=== PATIENT | male | born 1965 | race Two or more races ===

== ENCOUNTER 2018-08-13 09:24 | Emergency (ER) | payer MEDICAID, OTHER ==
[~2018-08-13] VITALS: Ht 170.2 cm; Wt 97.5 kg
[2018-08-13 09:40] VITALS: BP 153/100
== END 2018-08-13 10:55 | disposition home or self-care (01) ==
LOC: ER 09:24
DX: H10.33 Unspecified acute conjunctivitis, bilateral (principal)

== ENCOUNTER 2022-09-29 19:56 | Inpatient (IN) | payer MEDICAID ==
[~2022-09-29] VITALS: Ht 190.5 cm; Wt 117.5 kg
[2022-09-29 20:38] LABS: INR 1.02 (0.9-1.15); Partial Thromboplastin Time 25.4 sec (24.6-33.4)
[2022-09-29 20:41] LABS: Albumin 3.7 g/dL (3.4-5.0); BUN/Creatinine Ratio 9.6; Calcium 8.6 mg/dL (8.5-10.1); Magnesium 2.2 mg/dL (1.6-2.6); Potassium 4.2 mmol/L (3.5-5.1)
[2022-09-29 20:44] LABS: Bilirubin, Total 0.5 mg/dL (0.2-1.0)
[2022-09-29 20:49] LABS: Basophils % (auto) 0.7 % (0.0-2.0); Eosinophils % (auto) 1.7 % (0.0-7.0); Lymphocytes % (auto) 43.7 % (10.0-50.0); Monocytes % (auto) 10.3 % (0.0-12.0); Neutrophils % (auto) 43.6 % (37.0-80.0); White Blood Cell 6.8 10^3/uL (4.4-10.8)
[2022-09-29 20:50] LABS: Basophils # (auto) 0 10 ^3/uL (0-0.2); Eosinophils # (auto) 0.1 10 ^3/uL (0-0.8); Hematocrit 43.4 % (41.0-53.0); Hemoglobin 15.6 g/dL (13.5-17.5); Mean Corpuscular Hemoglobin 30.8 pg (28.0-32.0); Mean Corpuscular Volume 85.4 fL (80.0-100.0); Monocytes # (auto) 0.7 10 ^3/uL (0-1.3); Red Blood Cells 5.08 10^6/uL (4.5-5.90); Red Cell Distribution Width 12.7 % (11.8-14.3)
[2022-09-30] MEDS ORDERED: ONDANSETRON HCL 4 MG/2 ML VIAL IV PRN (04:00)
[2022-09-30] MEDS ORDERED: NITROGLYCERIN 0.4 MG SL TAB SL PRN (04:00)
[2022-09-30] MEDS ORDERED: TEMAZEPAM 15 MG CAP PO PRN (04:00)
[2022-09-30] MEDS ORDERED: MORPHINE SULFATE INJ 2 MG/ml SYRG IV PRN (04:00)
[2022-09-30] MEDS ORDERED: DEXTROSE (50%) 50ML SYRG IV PRN (04:00)
[2022-09-30] MEDS: InsuLIN REG 1unit/0.01ml Soln (100units/ml) SC SCH ×3 (06:59→17:46)
[2022-09-30] MEDS: ACCU-CHEK COMFORT CURVE STRIP VI SCH ×3 (07:00→17:45)
[2022-09-30] MEDS: PANTOPRAZOLE 40 MG TAB PO SCH (09:45)
[2022-09-30] MEDS: LISINOPRIL 20 MG TAB PO SCH (09:45)
[2022-09-30] MEDS: ENOXAPARIN SOD 40 MG/0.4 ML SYRINGE SC SCH (09:46)
[2022-09-30] MEDS ORDERED: ASPirin 81 mg TAB PO SCH (10:00)
[2022-09-30] MEDS ORDERED: ERGOCALCIFEROL 50,000 UNIT(1.25MG) CAP PO SCH (14:30)
[2022-09-30 15:07] LABS: Cholesterol 156 mg/dL (< 200)
[2022-09-30 15:10] LABS: HDL Cholesterol 30 mg/dL (40-59); LDL Cholesterol 108 mg/dL (< 100); Triglycerides 269 mg/dL (< 150)
[2022-09-30] MEDS ORDERED: ATORVASTATIN 20 MG TAB PO SCH ×2 (22:00)
[2022-10-01] MEDS: ACCU-CHEK COMFORT CURVE STRIP VI SCH ×3 (01:21→12:15)
[2022-10-01] MEDS: InsuLIN REG 1unit/0.01ml Soln (100units/ml) SC SCH ×3 (01:26→12:16)
[2022-10-01 05:33] LABS: Basophils # (auto) 0 10 ^3/uL (0-0.2); Basophils % (auto) 0.6 % (0.0-2.0); Eosinophils # (auto) 0.1 10 ^3/uL (0-0.8); Eosinophils % (auto) 1.8 % (0.0-7.0); Hematocrit 44.6 % (41.0-53.0); Hemoglobin 15.9 g/dL (13.5-17.5); Lymphocytes # (auto) 2.5 10 ^3/uL (0.4-5.4); Lymphocytes % (auto) 35.8 % (10.0-50.0); Mean Corpuscular Hemoglobin 30.2 pg (28.0-32.0); Mean Corpuscular Hgb Conc. 35.6 g/dL (32.0-36.0); Mean Corpuscular Volume 84.9 fL (80.0-100.0); Monocytes # (auto) 0.6 10 ^3/uL (0-1.3); Monocytes % (auto) 9.1 % (0.0-12.0); Neutrophils # (auto) 3.6 10 ^3/uL (1.6-8.6); Neutrophils % (auto) 52.7 % (37.0-80.0); Nucleated Red Blood Cells % 0.5 %; Red Blood Cells 5.25 10^6/uL (4.5-5.90); Red Cell Distribution Width 13.2 % (11.8-14.3); White Blood Cell 6.9 10^3/uL (4.4-10.8)
[2022-10-01 05:55] LABS: BUN/Creatinine Ratio 15.6; Calcium 8.7 mg/dL (8.5-10.1)
[2022-10-01] MEDS ORDERED: ADENOSINE 102 MG in GIVE UN-DILUTED 0 ML IV STA (08:20)
[2022-10-01] MEDS ORDERED: ASPirin 81 mg TAB PO SCH (10:00)
[2022-10-01] MEDS: PANTOPRAZOLE 40 MG TAB PO SCH (10:09)
[2022-10-01] MEDS: ENOXAPARIN SOD 40 MG/0.4 ML SYRINGE SC SCH (10:10)
[2022-10-01] MEDS: LISINOPRIL 20 MG TAB PO SCH (10:10)
[2022-10-01] MEDS ORDERED: ERGO1CAP23 PO (14:25)
[2022-10-01] MEDS ORDERED: ASPI-325 PO (14:25)
[2022-10-01] MEDS ORDERED: ATO40T PO (14:25)
[2022-10-01] MEDS ORDERED: LISI20TA28 PO (14:34)
[2022-10-01] MEDS ORDERED: SITA100T7 PO (15:10)
[2022-10-01 15:29] VITALS: BP 132/85
== END 2022-10-01 17:10 | disposition home or self-care (01) | DRG 198 ==
LOC: ER 19:59 → TELE 09-30 03:57 → TELE-CENTR 10-01 13:46
PROVIDERS: ADMIT Nurse Practitioner; ATTEND Internal Medicine
DX: R07.9 Chest pain, unspecified (principal); I25.10 Atherosclerotic heart disease of native coronary artery without angina pectoris; E11.9 Type 2 diabetes mellitus without complications; E55.9 Vitamin D deficiency, unspecified; E66.9 Obesity, unspecified; I10 Essential (primary) hypertension; Z20.822 Contact with and (suspected) exposure to COVID-19; M10.9 Gout, unspecified; Z71.3 Dietary counseling and surveillance; I69.30 Unspecified sequelae of cerebral infarction; Z68.32 Body mass index [BMI] 32.0-32.9, adult
CPT/HCPCS: 36415; 70450; 71045; 78452; 80048; 80053; 80061; 82306; 82962; 83036; 83735; 83880; 84443; 84484; 85025; 85610; 85730; 87426; 87804; 93005; 93017; 93306; G0378; J0153; J1815

== ENCOUNTER 2022-10-22 18:48 | Inpatient (IN) | payer MEDICAID ==
[~2022-10-22] VITALS: Ht 182.9 cm; Wt 117.9 kg
[~2022-10-22 18:48] MED LIST: ASPI-325 PO; ATO40T PO; ERGO1CAP23 PO; LISI20TA28 PO; SITA100T7 PO
[2022-10-22 20:39] LABS: Basophils # (auto) 0.1 10 ^3/uL (0-0.2); Basophils % (auto) 0.6 % (0.0-2.0); Eosinophils # (auto) 0.2 10 ^3/uL (0-0.8); Eosinophils % (auto) 1.5 % (0.0-7.0); Hematocrit 43.2 % (41.0-53.0); Hemoglobin 15.6 g/dL (13.5-17.5); Lymphocytes # (auto) 1.5 10 ^3/uL (0.4-5.4); Lymphocytes % (auto) 11.6 % (10.0-50.0); Mean Corpuscular Hemoglobin 30.1 pg (28.0-32.0); Mean Corpuscular Hgb Conc. 36.1 g/dL (32.0-36.0); Mean Corpuscular Volume 83.4 fL (80.0-100.0); Monocytes # (auto) 0.9 10 ^3/uL (0-1.3); Monocytes % (auto) 7.2 % (0.0-12.0); Neutrophils # (auto) 10.2 10 ^3/uL (1.6-8.6); Neutrophils % (auto) 79.1 % (37.0-80.0); Red Blood Cells 5.18 10^6/uL (4.5-5.90); Red Cell Distribution Width 12.7 % (11.8-14.3); White Blood Cell 12.9 10^3/uL (4.4-10.8)
[2022-10-22 20:46] LABS: Albumin 3.7 g/dL (3.4-5.0); BUN/Creatinine Ratio 14.9 (10.0-20.0); Magnesium 2.3 mg/dL (1.6-2.6); Potassium 3.9 mmol/L (3.5-5.1)
[2022-10-22 20:49] LABS: Bilirubin, Total 0.8 mg/dL (0.2-1.0); Total Protein 7.1 g/dL (6.4-8.2)
[2022-10-22 20:53] LABS: INR 1.03 (0.9-1.15); Partial Thromboplastin Time 26.3 sec (24.6-33.4)
[2022-10-22] MEDS ORDERED: NITROGLYCERIN 0.4MG/HR TOPICAL PATCH TD ONE (21:45)
[2022-10-22] MEDS ORDERED: ASPirin 325 MG TAB PO ONE (21:45)
[2022-10-22 21:54] LABS: Urine Bacteria NONE SEEN /hpf (None Seen); Urine Blood Negative /uL (Negative); Urine Mucus FEW (None Seen); Urine Specific Gravity 1.016 (1.001-1.035); Urine WBC 2 /hpf (0 - 3)
[2022-10-22] MEDS ORDERED: IOHEXOL 350 MG/ML 100ML IJ ONE (23:36)
[2022-10-22] MEDS ORDERED: DEXTROSE (50%) 50ML SYRG IV PRN (23:45)
[2022-10-22] MEDS ORDERED: PANTOPRAZOLE 40 MG/10 ML VIAL INJ IV ONE (23:45)
[2022-10-22] MEDS ORDERED: MORPHINE SULFATE INJ 2 MG/ml SYRG IV PRN ×2 (23:45)
[2022-10-22] MEDS ORDERED: NITROGLYCERIN 0.4 MG SL TAB SL PRN (23:45)
[2022-10-22] MEDS ORDERED: ENOXAPARIN SOD 100 MG/1 ML SYRINGE SC ONE (23:45)
[2022-10-23 05:53] LABS: Basophils # (auto) 0 10 ^3/uL (0-0.2); Basophils % (auto) 0.3 % (0.0-2.0); Eosinophils # (auto) 0.2 10 ^3/uL (0-0.8); Eosinophils % (auto) 1.3 % (0.0-7.0); Hematocrit 40.8 % (41.0-53.0); Hemoglobin 14.2 g/dL (13.5-17.5); Lymphocytes # (auto) 1.3 10 ^3/uL (0.4-5.4); Lymphocytes % (auto) 9.4 % (10.0-50.0); Mean Corpuscular Hemoglobin 29.9 pg (28.0-32.0); Mean Corpuscular Hgb Conc. 34.8 g/dL (32.0-36.0); Mean Corpuscular Volume 85.9 fL (80.0-100.0); Monocytes # (auto) 1.2 10 ^3/uL (0-1.3); Monocytes % (auto) 8.5 % (0.0-12.0); Neutrophils # (auto) 11.4 10 ^3/uL (1.6-8.6); Neutrophils % (auto) 80.5 % (37.0-80.0); Nucleated Red Blood Cells % 0.1 %; Red Blood Cells 4.75 10^6/uL (4.5-5.90); Red Cell Distribution Width 13.2 % (11.8-14.3); White Blood Cell 14.1 10^3/uL (4.4-10.8)
[2022-10-23 06:06] LABS: Potassium 3.8 mmol/L (3.5-5.1)
[2022-10-23 06:07] LABS: Barbiturate Scree,Urine NEGATIVE (NEGATIVE); Cannabinoid Screen, Urine NEGATIVE (NEGATIVE)
[2022-10-23 06:10] LABS: Alcohol, Urine < 3.0 mg/dL (0-10); Amphetamine Screen, Urine NEGATIVE (NEGATIVE); Benzodiazephine Screen, Urine NEGATIVE (NEGATIVE); Cocaine Screen, Urine NEGATIVE (NEGATIVE); Opiate Scree,Urine NEGATIVE (NEGATIVE); Phencyclidine Screen, Urine NEGATIVE (NEGATIVE)
[2022-10-23 06:18] LABS: Albumin 3.5 g/dL (3.4-5.0); BUN/Creatinine Ratio 12.6 (10.0-20.0); Bilirubin, Total 1.2 mg/dL (0.2-1.0); Calcium 8.7 mg/dL (8.5-10.1); Total Protein 7.1 g/dL (6.4-8.2)
[2022-10-23] MEDS: ACCU-CHEK COMFORT CURVE STRIP VI SCH ×4 (08:48→22:21)
[2022-10-23] MEDS: InsuLIN REG 1unit/0.01ml Soln (100units/ml) SC SCH ×4 (08:49→22:21)
[2022-10-23] MEDS ORDERED: PANTOPRAZOLE 40 MG/10 ML VIAL INJ IV SCH (10:00)
[2022-10-23] MEDS: ASPirin-EC 81 mg tab PO SCH (10:01)
[2022-10-23] MEDS: LISINOPRIL 20 MG TAB PO SCH (10:02)
[2022-10-23] MEDS: ENOXAPARIN SOD 40 MG/0.4 ML SYRINGE SC SCH (10:02)
[2022-10-23] MEDS: ATORVASTATIN 20 MG TAB PO SCH (18:23)
[2022-10-23] MEDS: ACETAMINOPHEN 325 MG TAB PO PRN (20:36)
[2022-10-24 04:40] VITALS: BP 127/70
[2022-10-24 05:00] VITALS: BP 127/70
[2022-10-24] MEDS: ACETAMINOPHEN 325 MG TAB PO PRN (05:28)
[2022-10-24] MEDS: InsuLIN REG 1unit/0.01ml Soln (100units/ml) SC SCH ×4 (06:21→22:43)
[2022-10-24] MEDS: ACCU-CHEK COMFORT CURVE STRIP VI SCH ×4 (06:38→22:39)
[2022-10-24 07:30] VITALS: BP 131/50
[2022-10-24 09:00] VITALS: BP 115/70
[2022-10-24] MEDS: ASPirin-EC 81 mg tab PO SCH (09:48)
[2022-10-24] MEDS: LISINOPRIL 20 MG TAB PO SCH (09:49)
[2022-10-24] MEDS: ENOXAPARIN SOD 40 MG/0.4 ML SYRINGE SC SCH (09:49)
[2022-10-24 13:00] VITALS: BP 125/68
[2022-10-24 17:00] VITALS: BP 118/71
[2022-10-24] MEDS ORDERED: ALL300T PO (17:26)
[2022-10-24] MEDS: ATORVASTATIN 20 MG TAB PO SCH (18:09)
[2022-10-24] MEDS: HYDROcodone-ACET 5/325MG TAB PO PRN (21:10)
[2022-10-25 05:00] VITALS: BP 118/71
[2022-10-25] MEDS: ACCU-CHEK COMFORT CURVE STRIP VI SCH ×4 (06:25→21:16)
[2022-10-25] MEDS: InsuLIN REG 1unit/0.01ml Soln (100units/ml) SC SCH ×4 (06:36→21:18)
[2022-10-25 07:30] VITALS: BP 115/70
[2022-10-25 09:00] VITALS: BP 125/83
[2022-10-25] MEDS: ASPirin-EC 81 mg tab PO SCH (12:17)
[2022-10-25] MEDS: ENOXAPARIN SOD 40 MG/0.4 ML SYRINGE SC SCH (12:26)
[2022-10-25] MEDS: LISINOPRIL 20 MG TAB PO SCH (12:26)
[2022-10-25 13:00] VITALS: BP 112/64
[2022-10-25 17:00] VITALS: BP 120/74
[2022-10-25] MEDS: ATORVASTATIN 20 MG TAB PO SCH (17:26)
[2022-10-25 22:00] VITALS: BP 134/69
[2022-10-26 05:00] VITALS: BP 120/76
[2022-10-26] MEDS: ACCU-CHEK COMFORT CURVE STRIP VI SCH ×4 (06:35→21:02)
[2022-10-26] MEDS: InsuLIN REG 1unit/0.01ml Soln (100units/ml) SC SCH ×4 (06:38→21:07)
[2022-10-26 09:00] VITALS: BP 117/72
[2022-10-26] MEDS: ASPirin-EC 81 mg tab PO SCH (10:12)
[2022-10-26] MEDS: LISINOPRIL 20 MG TAB PO SCH (10:13)
[2022-10-26] MEDS: ENOXAPARIN SOD 40 MG/0.4 ML SYRINGE SC SCH (10:13)
[2022-10-26 13:00] VITALS: BP 114/66
[2022-10-26 17:00] VITALS: BP 128/72
[2022-10-26] MEDS: ATORVASTATIN 20 MG TAB PO SCH (18:29)
[2022-10-26 22:00] VITALS: BP 129/73
[2022-10-27 05:00] VITALS: BP 100/64
[2022-10-27] MEDS: ACCU-CHEK COMFORT CURVE STRIP VI SCH ×2 (06:00→11:30)
[2022-10-27] MEDS: HYDROcodone-ACET 5/325MG TAB PO PRN (06:05)
[2022-10-27] MEDS: InsuLIN REG 1unit/0.01ml Soln (100units/ml) SC SCH ×2 (06:05→12:56)
[2022-10-27 09:00] VITALS: BP 118/78
[2022-10-27] MEDS: ASPirin-EC 81 mg tab PO SCH (09:22)
[2022-10-27] MEDS: ENOXAPARIN SOD 40 MG/0.4 ML SYRINGE SC SCH (09:23)
[2022-10-27] MEDS: LISINOPRIL 20 MG TAB PO SCH (09:23)
[2022-10-27 12:20] VITALS: BP 128/72
== END 2022-10-27 15:47 | disposition home or self-care (01) | DRG 198 ==
LOC: ER 18:48 → EDBD 18:48 → TELE 23:34 → TELE-CENTR 10-23 23:31
PROVIDERS: ADMIT Registered Nurse; ATTEND Internal Medicine
DX: R07.89 Other chest pain (principal); I20.0 Unstable angina; E11.9 Type 2 diabetes mellitus without complications; E66.01 Morbid (severe) obesity due to excess calories; E78.5 Hyperlipidemia, unspecified; I10 Essential (primary) hypertension; Z20.822 Contact with and (suspected) exposure to COVID-19; Z86.73 Personal history of transient ischemic attack (TIA), and cerebral infarction without residual deficits; Z68.35 Body mass index [BMI] 35.0-35.9, adult; Z79.899 Other long term (current) drug therapy
CPT/HCPCS: 36415; 71045; 71275; 80053; 80307; 81001; 82962; 83735; 83880; 84484; 85025; 85610; 85730; 87081; 87426; 93005; C9113; G0378; J1815

== ENCOUNTER 2023-07-16 12:22 | Inpatient (IN) | payer MEDICAID ==
[~2023-07-16] VITALS: Ht 195.6 cm; Wt 123.5 kg
[~2023-07-16 12:22] MED LIST changes: +ALL300T PO; +CEPH500C PO; +IBUP1TAB5 PO; -LISI20TA28 PO; +LISI20TA56 PO; +MUPI2OIN2 EX
[2023-07-16] MEDS ORDERED: ASPirin 325 MG TAB PO ONE (12:30)
[2023-07-16] MEDS ORDERED: NITROGLYCERIN 0.4 MG SL TAB SL ONE (12:30)
[2023-07-16 13:25] LABS: Basophils # (auto) 0.1 10 ^3/uL (0-0.2); Basophils % (auto) 0.7 % (0.0-2.0); Eosinophils # (auto) 0.1 10 ^3/uL (0-0.8); Hematocrit 48.2 % (41.0-53.0); Hemoglobin 16.4 g/dL (13.5-17.5); Lymphocytes # (auto) 2.2 10 ^3/uL (0.4-5.4); Lymphocytes % (auto) 28.3 % (10.0-50.0); Mean Corpuscular Hemoglobin 30.2 pg (28.0-32.0); Mean Corpuscular Hgb Conc. 34.1 g/dL (32.0-36.0); Mean Corpuscular Volume 88.7 fL (80.0-100.0); Monocytes # (auto) 0.7 10 ^3/uL (0-1.3); Monocytes % (auto) 9.7 % (0.0-12.0); Neutrophils # (auto) 4.6 10 ^3/uL (1.6-8.6); Neutrophils % (auto) 60.3 % (37.0-80.0); Nucleated Red Blood Cells % 0.3 %; Red Blood Cells 5.44 10^6/uL (4.5-5.90); Red Cell Distribution Width 13.3 % (11.8-14.3); White Blood Cell 7.6 10^3/uL (4.4-10.8)
[2023-07-16 13:30] LABS: Alanine Aminotransferase 54 U/L (7-40); Albumin 4.4 g/dL (3.2-4.8); Alkaline Phosphatase 142 U/L (46-116); Anion Gap 8 (5-15); Aspartate Aminotransferase 21 U/L (13-40); BUN/Creatinine Ratio 12.2 (10.0-20.0); Bilirubin, Total 0.5 mg/dL (0.2-1.0); Blood Urea Nitrogen 11 mg/dL (9-23); Calcium 9.2 mg/dL (8.5-10.1); Carbon Dioxide 24 mmol/L (20-30); Chloride 106 mmol/L (98-107); Glucose 139 mg/dL (74-106); Potassium 4.4 mmol/L (3.5-5.1); Sodium 138 mmol/L (136-145)
[2023-07-16 13:31] LABS: Total Protein 6.8 g/dL (5.7-8.2)
[2023-07-16] MEDS ORDERED: ACETAMINOPHEN 325 MG TAB PO PRN (15:00)
[2023-07-16] MEDS ORDERED: NITROGLYCERIN 0.4 MG SL TAB SL PRN (15:00)
[2023-07-16] MEDS ORDERED: MORPHINE SULFATE 4 MG/ML SYR/VIAL IV PRN (15:00)
[2023-07-16] MEDS ORDERED: ONDANSETRON HCL 4 MG/2 ML VIAL IV PRN (15:00)
[2023-07-16 15:32] LABS: INR 1.05 (0.9-1.15)
[2023-07-16 22:10] VITALS: PULSE 74
[2023-07-16] MEDS: ATORVASTATIN 20 MG TAB PO SCH (22:13)
[2023-07-16] MEDS ORDERED: DEXTROSE (50%) 50ML SYRG IV PRN (22:30)
[2023-07-17] VITALS (8 sets, daily range): BP systolic 99–123; BP diastolic 57–65; PULSE 55–69; RESP 16–20; TEMP 97.5–98.3; O2SAT 92–100
[2023-07-17] MEDS: InsuLIN REG 1unit/0.01ml Soln (100units/ml) SC SCH ×5 (03:21→22:00)
[2023-07-17] MEDS: ACCU-CHEK COMFORT CURVE STRIP VI SCH ×6 (03:21→22:00)
[2023-07-17 05:58] LABS: Basophils # (auto) 0 10 ^3/uL (0-0.2); Basophils % (auto) 0.4 % (0.0-2.0); Eosinophils # (auto) 0.1 10 ^3/uL (0-0.8); Eosinophils % (auto) 0.9 % (0.0-7.0); Hematocrit 46.4 % (41.0-53.0); Hemoglobin 15.7 g/dL (13.5-17.5); Lymphocytes # (auto) 2.3 10 ^3/uL (0.4-5.4); Mean Corpuscular Hemoglobin 30.4 pg (28.0-32.0); Mean Corpuscular Hgb Conc. 33.9 g/dL (32.0-36.0); Mean Corpuscular Volume 89.6 fL (80.0-100.0); Monocytes # (auto) 0.8 10 ^3/uL (0-1.3); Monocytes % (auto) 9.3 % (0.0-12.0); Neutrophils # (auto) 5.3 10 ^3/uL (1.6-8.6); Neutrophils % (auto) 62.4 % (37.0-80.0); Nucleated Red Blood Cells % 0.2 %; Red Blood Cells 5.18 10^6/uL (4.5-5.90); Red Cell Distribution Width 13.7 % (11.8-14.3); White Blood Cell 8.5 10^3/uL (4.4-10.8)
[2023-07-17 06:18] LABS: Alanine Aminotransferase 48 U/L (7-40); Alkaline Phosphatase 92 U/L (46-116); Anion Gap 11 (5-15); BUN/Creatinine Ratio 7.6 (10.0-20.0); Blood Urea Nitrogen 7 mg/dL (9-23); Calcium 9.2 mg/dL (8.5-10.1); Carbon Dioxide 20 mmol/L (20-30); Chloride 107 mmol/L (98-107); Glucose 101 mg/dL (74-106); LDL Cholesterol 57 mg/dL (< 100); Potassium 4.2 mmol/L (3.5-5.1); Sodium 138 mmol/L (136-145); Triglycerides 131 mg/dL (< 150)
[2023-07-17 06:19] LABS: Albumin 4.2 g/dL (3.2-4.8); Aspartate Aminotransferase 19 U/L (13-40); Bilirubin, Total 0.9 mg/dL (0.2-1.0); Cholesterol 97 mg/dL (< 200); HDL Cholesterol 25 mg/dL (40-59)
[2023-07-17 06:20] LABS: Total Protein 6.9 g/dL (5.7-8.2)
[2023-07-17] MEDS ORDERED: ASPirin 81 mg TAB PO SCH (10:00)
[2023-07-17] MEDS ORDERED: DEXTROSE (50%) 50ML SYRG IV PRN (10:00)
[2023-07-17] MEDS ORDERED: LISINOPRIL 20 MG TAB PO SCH (10:00)
[2023-07-17] MEDS: ASPirin-EC 81 mg tab PO SCH (10:14)
[2023-07-17] MEDS: ALLOPURINOL 300 MG TAB PO SCH (10:14)
[2023-07-17] MEDS: DOCUSATE SOD 100 MG CAP PO SCH (10:14)
[2023-07-17] MEDS: PANTOPRAZOLE 40 MG TAB PO SCH (10:15)
[2023-07-17] MEDS: ATORVASTATIN 20 MG TAB PO SCH (22:14)
[2023-07-18 05:00] VITALS: BP 100/76; PULSE 63; RESP 18; TEMP 97.6; O2SAT 95
[2023-07-18] MEDS: ACCU-CHEK COMFORT CURVE STRIP VI SCH ×6 (06:04→21:25)
[2023-07-18] MEDS: InsuLIN REG 1unit/0.01ml Soln (100units/ml) SC SCH ×4 (06:04→21:34)
[2023-07-18 08:00] VITALS: PULSE 60; PULSE 66; RESP 16; O2SAT 97
[2023-07-18] MEDS ORDERED: ACETAMINOPHEN 325 MG TAB PO PRN (09:15)
[2023-07-18] MEDS ORDERED: hydrALAZINE HCL 20 MG/ML VL IV PRN (09:15)
[2023-07-18] MEDS: PANTOPRAZOLE 40 MG TAB PO SCH (11:31)
[2023-07-18] MEDS: ALLOPURINOL 300 MG TAB PO SCH (11:31)
[2023-07-18] MEDS: DOCUSATE SOD 100 MG CAP PO SCH (11:31)
[2023-07-18] MEDS: ASPirin-EC 81 mg tab PO SCH (11:31)
[2023-07-18 13:56] VITALS: BP 122/70; PULSE 63; RESP 20; TEMP 98.1; O2SAT 95
[2023-07-18 17:22] VITALS: BP 100/49; PULSE 62; RESP 20; TEMP 97.3; O2SAT 97
[2023-07-18 20:00] VITALS: PULSE 74; RESP 17; O2SAT 96
[2023-07-18] MEDS: ATORVASTATIN 20 MG TAB PO SCH (21:33)
[2023-07-18 22:00] VITALS: BP 111/69; PULSE 72; RESP 17; TEMP 98.2; O2SAT 96
[2023-07-19 00:16] LABS: Urine Bacteria NONE SEEN /hpf (None Seen); Urine Blood Negative /uL (Negative); Urine Clarity Clear (Clear); Urine Color Yellow (Yellow); Urine Protein, UAD Negative (Negative); Urine Specific Gravity 1.025 (1.001-1.035); Urine Urobilinogen Normal (Negative); Urine WBC 1 /hpf (0 - 3); Urine pH 5.5 (5.0-8.0)
[2023-07-19 05:00] VITALS: BP 119/79; PULSE 17; RESP 17; TEMP 98.3; O2SAT 93
[2023-07-19] MEDS: ACCU-CHEK COMFORT CURVE STRIP VI SCH ×2 (06:12→11:51)
[2023-07-19] MEDS: InsuLIN REG 1unit/0.01ml Soln (100units/ml) SC SCH ×2 (06:12→11:53)
[2023-07-19 08:10] VITALS: BP 121/79; PULSE 57; PULSE 62; PULSE 64; RESP 19; TEMP 97.6; O2SAT 94
[2023-07-19 09:00] VITALS: BP 121/79; PULSE 64; RESP 19; TEMP 97.6; O2SAT 92
[2023-07-19] MEDS: ASPirin-EC 81 mg tab PO SCH (09:02)
[2023-07-19] MEDS: ALLOPURINOL 300 MG TAB PO SCH (09:02)
[2023-07-19] MEDS: PANTOPRAZOLE 40 MG TAB PO SCH (09:02)
[2023-07-19] MEDS: DOCUSATE SOD 100 MG CAP PO SCH (09:02)
[2023-07-19 13:00] VITALS: BP 107/75; PULSE 62; RESP 21; TEMP 97.4; O2SAT 98
[2023-07-19 14:19] VITALS: BP 107/75; PULSE 62; RESP 21; TEMP 97.4; O2SAT 98
[2023-07-20 09:34] LABS: Hepatitis B Surface Antigen Negative (Negative)
[2023-07-20 09:56] LABS: Hepatitis C Antibody Negative (Negative)
== END 2023-07-19 16:15 | disposition home or self-care (01) | DRG 198 ==
LOC: EDBD 12:22 → ER 12:22 → EDUNIT# 12:22 → TELE 14:51 → TELE-CENTR 07-17 03:25
PROVIDERS: ADMIT Nurse Practitioner Family; ATTEND Internal Medicine
DX: I25.10 Atherosclerotic heart disease of native coronary artery without angina pectoris (principal); E11.65 Type 2 diabetes mellitus with hyperglycemia; I10 Essential (primary) hypertension; E78.5 Hyperlipidemia, unspecified; E66.9 Obesity, unspecified; M10.9 Gout, unspecified; R74.01 Elevation of levels of liver transaminase levels; Z83.3 Family history of diabetes mellitus; Z86.73 Personal history of transient ischemic attack (TIA), and cerebral infarction without residual deficits; Z95.5 Presence of coronary angioplasty implant and graft; Z68.32 Body mass index [BMI] 32.0-32.9, adult
CPT/HCPCS: 36415; 71045; 80053; 80061; 81001; 82962; 83036; 83605; 83735; 83880; 84100; 84484; 85025; 85379; 85610; 86803; 87081; 87340; 93005; 93306; G0378; J1815; J2405

== ENCOUNTER 2023-07-28 12:05 | Inpatient (IN) | payer MEDICAID ==
[~2023-07-28] VITALS: Ht 175.3 cm; Wt 124.3 kg
[2023-07-28 13:38] LABS: Basophils # (auto) 0 10 ^3/uL (0-0.2); Basophils % (auto) 0.5 % (0.0-2.0); Eosinophils # (auto) 0.1 10 ^3/uL (0-0.8); Eosinophils % (auto) 1.7 % (0.0-7.0); Hemoglobin 16.6 g/dL (13.5-17.5); Lymphocytes # (auto) 1.8 10 ^3/uL (0.4-5.4); Lymphocytes % (auto) 24.2 % (10.0-50.0); Mean Corpuscular Hgb Conc. 33.9 g/dL (32.0-36.0); Mean Corpuscular Volume 88.5 fL (80.0-100.0); Monocytes # (auto) 0.7 10 ^3/uL (0-1.3); Neutrophils # (auto) 4.8 10 ^3/uL (1.6-8.6); Neutrophils % (auto) 63.6 % (37.0-80.0); Nucleated Red Blood Cells % 0.1 %; Red Blood Cells 5.54 10^6/uL (4.5-5.90); Red Cell Distribution Width 13.7 % (11.8-14.3); White Blood Cell 7.5 10^3/uL (4.4-10.8)
[2023-07-28 13:56] LABS: Alanine Aminotransferase 43 U/L (7-40); Albumin 4.6 g/dL (3.2-4.8); Alkaline Phosphatase 116 U/L (46-116); Anion Gap 8 (5-15); Aspartate Aminotransferase 19 U/L (13-40); BUN/Creatinine Ratio 12.6 (10.0-20.0); Bilirubin, Total 0.6 mg/dL (0.2-1.0); Blood Urea Nitrogen 12 mg/dL (9-23); Calcium 9.4 mg/dL (8.7-10.4); Carbon Dioxide 25 mmol/L (20-30); Chloride 105 mmol/L (98-107); Glucose 150 mg/dL (74-106); Potassium 4.1 mmol/L (3.5-5.1); Sodium 138 mmol/L (136-145); Total Protein 7.2 g/dL (5.7-8.2)
[2023-07-28 14:10] LABS: INR 1.06 (0.9-1.15); Partial Thromboplastin Time 27.2 SEC (24.5-34.5); Prothrombin Time 11.3 sec (9.3-11.8)
[2023-07-28] MEDS ORDERED: ASPirin 81 mg TAB PO ONE (19:30)
[2023-07-28] MEDS ORDERED: DEXTROSE (50%) 50ML SYRG IV PRN (21:15)
[2023-07-28] MEDS ORDERED: NITROGLYCERIN 0.4 MG SL TAB SL PRN (21:15)
[2023-07-28] MEDS ORDERED: TEMAZEPAM 15 MG CAP PO PRN (21:15)
[2023-07-28] MEDS ORDERED: MORPHINE SULFATE INJ 2 MG/ml SYRG IV PRN (21:15)
[2023-07-28] MEDS ORDERED: ONDANSETRON HCL 4 MG/2 ML VIAL IV PRN (21:15)
[2023-07-28] MEDS: METOPROLOL TARTRATE 25 MG TAB PO SCH (22:00)
[2023-07-28] MEDS: InsuLIN REG 1unit/0.01ml Soln (100units/ml) SC SCH (22:00)
[2023-07-28] MEDS: ATORVASTATIN 20 MG TAB PO SCH (22:00)
[2023-07-28] MEDS: ACCU-CHEK COMFORT CURVE STRIP VI SCH (23:02)
[2023-07-29] VITALS (7 sets, daily range): BP systolic 98–130; BP diastolic 65–93; PULSE 60–77; RESP 16–18; TEMP 98.3–98.9; O2SAT 93–96
[2023-07-29 04:30] LABS: Alanine Aminotransferase 38 U/L (7-40); Albumin 4.5 g/dL (3.2-4.8); Alkaline Phosphatase 97 U/L (46-116); Anion Gap 11 (5-15); Aspartate Aminotransferase 18 U/L (13-40); BUN/Creatinine Ratio 11.2 (10.0-20.0); Bilirubin, Total 1.2 mg/dL (0.2-1.0); Blood Urea Nitrogen 10 mg/dL (9-23); Calcium 9.4 mg/dL (8.7-10.4); Carbon Dioxide 21 mmol/L (20-30); Chloride 106 mmol/L (98-107); Glucose 101 mg/dL (74-106); Potassium 3.9 mmol/L (3.5-5.1); Sodium 138 mmol/L (136-145); Total Protein 7.5 g/dL (5.7-8.2)
[2023-07-29 04:43] LABS: Basophils # (auto) 0 10 ^3/uL (0-0.2); Basophils % (auto) 0.4 % (0.0-2.0); Eosinophils # (auto) 0.1 10 ^3/uL (0-0.8); Eosinophils % (auto) 1.3 % (0.0-7.0); Hemoglobin 16.6 g/dL (13.5-17.5); Lymphocytes # (auto) 2.2 10 ^3/uL (0.4-5.4); Lymphocytes % (auto) 22.6 % (10.0-50.0); Mean Corpuscular Hemoglobin 30.1 pg (28.0-32.0); Mean Corpuscular Hgb Conc. 33.8 g/dL (32.0-36.0); Mean Corpuscular Volume 89.1 fL (80.0-100.0); Monocytes # (auto) 0.9 10 ^3/uL (0-1.3); Monocytes % (auto) 8.9 % (0.0-12.0); Neutrophils # (auto) 6.4 10 ^3/uL (1.6-8.6); Neutrophils % (auto) 66.8 % (37.0-80.0); Nucleated Red Blood Cells % 0.5 %; Red Blood Cells 5.49 10^6/uL (4.5-5.90); Red Cell Distribution Width 13.8 % (11.8-14.3); White Blood Cell 9.6 10^3/uL (4.4-10.8)
[2023-07-29] MEDS: InsuLIN REG 1unit/0.01ml Soln (100units/ml) SC SCH ×4 (06:10→21:28)
[2023-07-29] MEDS: ACCU-CHEK COMFORT CURVE STRIP VI SCH ×4 (06:11→21:09)
[2023-07-29] MEDS: METOPROLOL TARTRATE 25 MG TAB PO SCH ×2 (09:56→21:10)
[2023-07-29] MEDS: ASPirin 81 mg TAB PO SCH (09:56)
[2023-07-29] MEDS: CLOPIDOGREL BISULFATE 75 MG TAB PO SCH (09:57)
[2023-07-29] MEDS: ALLOPURINOL 300 MG TAB PO SCH (09:57)
[2023-07-29] MEDS: LISINOPRIL 20 MG TAB PO SCH (09:58)
[2023-07-29] MEDS ORDERED: KETOROLAC TROMETH 30 MG/ML 1ML VIAL IV ONE (14:15)
[2023-07-29] MEDS ORDERED: PANTOPRAZOLE 40 MG TAB PO ONE (14:15)
[2023-07-29] MEDS ORDERED: DULO20CA PO (15:54)
[2023-07-29] MEDS ORDERED: EMPA1TAB3 PO (15:54)
[2023-07-29] MEDS ORDERED: OXYC-113 PO (15:54)
[2023-07-29] MEDS ORDERED: METO25TA5 PO (15:54)
[2023-07-29] MEDS ORDERED: CLOP75TA28 PO (15:54)
[2023-07-29] MEDS ORDERED: GLIP5TAB12 PO (15:54)
[2023-07-29] MEDS ORDERED: INSU1INJ19 SC (15:54)
[2023-07-29] MEDS ORDERED: LOSA100T58 PO (15:54)
[2023-07-29] MEDS: ATORVASTATIN 20 MG TAB PO SCH (21:10)
[2023-07-29 22:03] LABS: Urine Bacteria NONE SEEN /hpf (None Seen); Urine Blood Negative /uL (Negative); Urine Clarity Clear (Clear); Urine Color Yellow (Yellow); Urine Mucus FEW (None Seen); Urine Protein, UAD TRACE (Negative); Urine Urobilinogen Normal (Negative); Urine WBC 3 /hpf (0 - 3); Urine pH 5.5 (5.0-8.0)
[2023-07-30] VITALS (8 sets, daily range): BP systolic 100–117; BP diastolic 65–80; PULSE 54–85; RESP 16–19; TEMP 97.7–98.9; O2SAT 94–100
[2023-07-30] MEDS: InsuLIN REG 1unit/0.01ml Soln (100units/ml) SC SCH ×4 (06:24→22:00)
[2023-07-30] MEDS: ACCU-CHEK COMFORT CURVE STRIP VI SCH ×4 (06:24→22:21)
[2023-07-30] MEDS: ALLOPURINOL 300 MG TAB PO SCH (09:48)
[2023-07-30] MEDS: ASPirin 81 mg TAB PO SCH (09:48)
[2023-07-30] MEDS: PANTOPRAZOLE 40 MG TAB PO SCH (09:48)
[2023-07-30] MEDS: CLOPIDOGREL BISULFATE 75 MG TAB PO SCH (09:48)
[2023-07-30] MEDS: LISINOPRIL 20 MG TAB PO SCH (09:49)
[2023-07-30] MEDS: METOPROLOL TARTRATE 25 MG TAB PO SCH ×2 (09:50→21:59)
[2023-07-30] MEDS ORDERED: NITROGLYCERIN 0.2MG/HR TOPICAL PATCH TD ONE (14:45)
[2023-07-30] MEDS: RANOLAZINE ER 500 MG TAB PO SCH (22:09)
[2023-07-30] MEDS: ATORVASTATIN 20 MG TAB PO SCH (22:09)
[2023-07-31] VITALS (12 sets, daily range): BP systolic 106–125; BP diastolic 74–98; PULSE 58–76; RESP 11–19; TEMP 97.5–98.1; O2SAT 93–97
[2023-07-31] MEDS: InsuLIN REG 1unit/0.01ml Soln (100units/ml) SC SCH ×4 (06:54→22:52)
[2023-07-31] MEDS: ACCU-CHEK COMFORT CURVE STRIP VI SCH ×4 (06:54→22:46)
[2023-07-31] MEDS: ACETAMINOPHEN 325 MG TAB PO PRN (07:37)
[2023-07-31] MEDS: ALLOPURINOL 300 MG TAB PO SCH (08:55)
[2023-07-31] MEDS: RANOLAZINE ER 500 MG TAB PO SCH ×2 (08:55→22:46)
[2023-07-31] MEDS: PANTOPRAZOLE 40 MG TAB PO SCH (08:55)
[2023-07-31] MEDS: CLOPIDOGREL BISULFATE 75 MG TAB PO SCH (08:56)
[2023-07-31] MEDS: METOPROLOL TARTRATE 25 MG TAB PO SCH ×2 (08:56→22:46)
[2023-07-31] MEDS: LISINOPRIL 10 MG TAB PO SCH (08:57)
[2023-07-31] MEDS: ASPirin 81 mg TAB PO SCH (08:58)
[2023-07-31] MEDS: NITROGLYCERIN 0.2MG/HR TOPICAL PATCH TD SCH (08:58)
[2023-07-31] MEDS ORDERED: LIDOCAINE 2%HCL (LOCAL ANESTH.) INJ 20ML MDV ONE (19:01)
[2023-07-31] MEDS ORDERED: IODIXANOL 320MG/ML 100ML BTL IV ONE (19:01)
[2023-07-31] MEDS ORDERED: HEPARIN SODIUM (PORCINE) 5000 UNITS/ML 1ML VIAL ONE (19:03)
[2023-07-31] MEDS ORDERED: MIDAZOLAM HCL 2MG/2ML 2ml VIAL (1mg/ml) ONE (19:03)
[2023-07-31] MEDS ORDERED: fentaNYL CITRATE 100 MCG/2 ML VL ONE (19:03)
[2023-07-31] MEDS ORDERED: VERAPAMIL 2.5MG/ML INJ 2ML VIAL IV ONE (19:03)
[2023-07-31] MEDS ORDERED: ANGIOMAX 250 MG VIAL IV ONE (19:03)
[2023-07-31] MEDS ORDERED: SODIUM CHL 0.9% 50 ML ONE (19:04)
[2023-07-31] MEDS: ATORVASTATIN 20 MG TAB PO SCH (22:46)
[2023-08-01] VITALS (7 sets, daily range): BP systolic 94–130; BP diastolic 50–68; PULSE 63–90; RESP 16–20; TEMP 97.7–98.3; O2SAT 91–93
[2023-08-01] MEDS: InsuLIN REG 1unit/0.01ml Soln (100units/ml) SC SCH ×4 (06:38→22:03)
[2023-08-01] MEDS: ACCU-CHEK COMFORT CURVE STRIP VI SCH ×4 (06:38→22:07)
[2023-08-01 07:12] LABS: Basophils # (auto) 0 10 ^3/uL (0-0.2); Basophils % (auto) 0.3 % (0.0-2.0); Eosinophils # (auto) 0.1 10 ^3/uL (0-0.8); Eosinophils % (auto) 1.5 % (0.0-7.0); Hematocrit 47.6 % (41.0-53.0); Hemoglobin 16.3 g/dL (13.5-17.5); Lymphocytes # (auto) 1.6 10 ^3/uL (0.4-5.4); Lymphocytes % (auto) 18.8 % (10.0-50.0); Mean Corpuscular Hemoglobin 30.2 pg (28.0-32.0); Mean Corpuscular Hgb Conc. 34.1 g/dL (32.0-36.0); Mean Corpuscular Volume 88.4 fL (80.0-100.0); Monocytes # (auto) 0.8 10 ^3/uL (0-1.3); Monocytes % (auto) 9.3 % (0.0-12.0); Neutrophils # (auto) 5.9 10 ^3/uL (1.6-8.6); Neutrophils % (auto) 70.1 % (37.0-80.0); Nucleated Red Blood Cells % 0.2 %; Red Blood Cells 5.39 10^6/uL (4.5-5.90); Red Cell Distribution Width 13.1 % (11.8-14.3); White Blood Cell 8.4 10^3/uL (4.4-10.8)
[2023-08-01 07:22] LABS: Anion Gap 7 (5-15); Carbon Dioxide 27 mmol/L (20-30); Chloride 103 mmol/L (98-107); Potassium 3.8 mmol/L (3.5-5.1); Sodium 137 mmol/L (136-145)
[2023-08-01 07:28] LABS: BUN/Creatinine Ratio 9.8 (10.0-20.0); Blood Urea Nitrogen 9 mg/dL (9-23); Glucose 89 mg/dL (74-106)
[2023-08-01] MEDS: RANOLAZINE ER 500 MG TAB PO SCH ×2 (08:38→22:06)
[2023-08-01] MEDS: ACETAMINOPHEN 325 MG TAB PO PRN ×2 (08:38→20:22)
[2023-08-01] MEDS: PANTOPRAZOLE 40 MG TAB PO SCH (08:38)
[2023-08-01] MEDS: CLOPIDOGREL BISULFATE 75 MG TAB PO SCH (08:38)
[2023-08-01] MEDS: NITROGLYCERIN 0.2MG/HR TOPICAL PATCH TD SCH (08:39)
[2023-08-01] MEDS: ASPirin 81 mg TAB PO SCH (08:39)
[2023-08-01] MEDS: METOPROLOL TARTRATE 25 MG TAB PO SCH ×2 (08:39→22:07)
[2023-08-01] MEDS: ALLOPURINOL 300 MG TAB PO SCH (08:39)
[2023-08-01] MEDS: LISINOPRIL 10 MG TAB PO SCH ×2 (10:02→10:30)
[2023-08-01] MEDS: ATORVASTATIN 20 MG TAB PO SCH (22:06)
[2023-08-02] VITALS (7 sets, daily range): BP systolic 100–127; BP diastolic 56–76; PULSE 56–78; RESP 17–20; TEMP 97.5–98.3; O2SAT 93–97
[2023-08-02] MEDS: InsuLIN REG 1unit/0.01ml Soln (100units/ml) SC SCH ×4 (06:29→21:22)
[2023-08-02] MEDS: ACCU-CHEK COMFORT CURVE STRIP VI SCH ×4 (06:30→21:14)
[2023-08-02] MEDS: RANOLAZINE ER 500 MG TAB PO SCH ×2 (09:20→21:14)
[2023-08-02] MEDS: ASPirin 81 mg TAB PO SCH (09:20)
[2023-08-02] MEDS: CLOPIDOGREL BISULFATE 75 MG TAB PO SCH (09:20)
[2023-08-02] MEDS: ALLOPURINOL 300 MG TAB PO SCH (09:20)
[2023-08-02] MEDS: PANTOPRAZOLE 40 MG TAB PO SCH (09:20)
[2023-08-02] MEDS: LISINOPRIL 10 MG TAB PO SCH (09:21)
[2023-08-02] MEDS: METOPROLOL TARTRATE 25 MG TAB PO SCH ×2 (09:21→21:21)
[2023-08-02] MEDS: NITROGLYCERIN 0.2MG/HR TOPICAL PATCH TD SCH (09:21)
[2023-08-02 13:49] LABS: Alanine Aminotransferase 37 U/L (7-40); Albumin 4.4 g/dL (3.2-4.8); Alkaline Phosphatase 96 U/L (46-116); Anion Gap 5 (5-15); Aspartate Aminotransferase 23 U/L (13-40); Bilirubin, Total 1.1 mg/dL (0.2-1.0); Blood Urea Nitrogen 13 mg/dL (9-23); Calcium 9.5 mg/dL (8.5-10.1); Carbon Dioxide 29 mmol/L (20-30); Chloride 103 mmol/L (98-107); Potassium 4.6 mmol/L (3.5-5.1); Sodium 137 mmol/L (136-145)
[2023-08-02 13:55] LABS: Glucose 190 mg/dL (74-106)
[2023-08-02] MEDS: ATORVASTATIN 20 MG TAB PO SCH (21:12)
[2023-08-02] MEDS: ACETAMINOPHEN 325 MG TAB PO PRN (21:13)
[2023-08-03] MEDS: ACETAMINOPHEN 325 MG TAB PO PRN (03:35)
[2023-08-03 05:00] VITALS: BP 109/72; PULSE 67; RESP 20; TEMP 98.3; O2SAT 92
[2023-08-03] MEDS: ACCU-CHEK COMFORT CURVE STRIP VI SCH ×2 (06:12→11:25)
[2023-08-03] MEDS: InsuLIN REG 1unit/0.01ml Soln (100units/ml) SC SCH ×2 (06:14→11:25)
[2023-08-03 06:25] LABS: Basophils # (auto) 0 10 ^3/uL (0-0.2); Basophils % (auto) 0.3 % (0.0-2.0); Eosinophils # (auto) 0.2 10 ^3/uL (0-0.8); Eosinophils % (auto) 2.8 % (0.0-7.0); Hematocrit 48.4 % (41.0-53.0); Hemoglobin 16.2 g/dL (13.5-17.5); Lymphocytes % (auto) 25.2 % (10.0-50.0); Mean Corpuscular Hemoglobin 29.8 pg (28.0-32.0); Mean Corpuscular Hgb Conc. 33.5 g/dL (32.0-36.0); Mean Corpuscular Volume 88.9 fL (80.0-100.0); Monocytes # (auto) 0.8 10 ^3/uL (0-1.3); Monocytes % (auto) 9.7 % (0.0-12.0); Neutrophils # (auto) 4.9 10 ^3/uL (1.6-8.6); Nucleated Red Blood Cells % 0.2 %; Red Blood Cells 5.44 10^6/uL (4.5-5.90); Red Cell Distribution Width 13.3 % (11.8-14.3); White Blood Cell 7.8 10^3/uL (4.4-10.8)
[2023-08-03 08:15] VITALS: PULSE 76
[2023-08-03] MEDS: ASPirin 81 mg TAB PO SCH (09:04)
[2023-08-03] MEDS: RANOLAZINE ER 500 MG TAB PO SCH (09:04)
[2023-08-03] MEDS: ALLOPURINOL 300 MG TAB PO SCH (09:04)
[2023-08-03] MEDS: LISINOPRIL 10 MG TAB PO SCH (09:04)
[2023-08-03] MEDS: PANTOPRAZOLE 40 MG TAB PO SCH (09:04)
[2023-08-03] MEDS: CLOPIDOGREL BISULFATE 75 MG TAB PO SCH (09:04)
[2023-08-03] MEDS: METOPROLOL TARTRATE 25 MG TAB PO SCH (09:05)
[2023-08-03] MEDS: NITROGLYCERIN 0.2MG/HR TOPICAL PATCH TD SCH (09:05)
[2023-08-03 09:30] VITALS: BP 119/69; PULSE 67; RESP 19; TEMP 98.1; O2SAT 98
[2023-08-03 11:54] VITALS: BP 125/81; PULSE 77; RESP 18; TEMP 98.3; O2SAT 93
== END 2023-08-03 13:07 | disposition home or self-care (01) | DRG 175 ==
LOC: EDBD 12:05 → ER 12:05 → TELE 18:24 → TELE-WESTW 07-29 03:25
PROVIDERS: ADMIT Nurse Practitioner; ATTEND Internal Medicine
PROC: 027034Z Dilation of Coronary Artery, One Artery with Drug-eluting Intraluminal Device, Percutaneous Approach (ICD-10-PCS; principal; 2023-07-31)
PROC: B241ZZ3 Ultrasonography of Multiple Coronary Arteries, Intravascular (ICD-10-PCS; 2023-07-31)
PROC: 4A023N7 Measurement of Cardiac Sampling and Pressure, Left Heart, Percutaneous Approach (ICD-10-PCS; 2023-07-31)
PROC: B211YZZ Fluoroscopy of Multiple Coronary Arteries using Other Contrast (ICD-10-PCS; 2023-07-31)
PROC: B215YZZ Fluoroscopy of Left Heart using Other Contrast (ICD-10-PCS; 2023-07-31)
DX: I25.10 Atherosclerotic heart disease of native coronary artery without angina pectoris (principal); J96.10 Chronic respiratory failure, unspecified whether with hypoxia or hypercapnia; E11.9 Type 2 diabetes mellitus without complications; M10.9 Gout, unspecified; E78.5 Hyperlipidemia, unspecified; I10 Essential (primary) hypertension; E66.01 Morbid (severe) obesity due to excess calories; I25.2 Old myocardial infarction; Z95.5 Presence of coronary angioplasty implant and graft; Z68.41 Body mass index [BMI] 40.0-44.9, adult; Z79.899 Other long term (current) drug therapy; Z79.82 Long term (current) use of aspirin; Z86.73 Personal history of transient ischemic attack (TIA), and cerebral infarction without residual deficits
CPT/HCPCS: 36415; 71045; 80048; 80053; 81001; 82962; 84484; 85025; 85379; 85610; 85730; 92928; 92978; 92979; 93005; 93458; 99152; G0378; J1815; J1885; J2250; J2405; Q9967

== ENCOUNTER 2023-09-16 14:58 | Inpatient (IN) | payer MEDICAID ==
[~2023-09-16] VITALS: Ht 195.6 cm; Wt 119.3 kg
[~2023-09-16 14:58] MED LIST changes: +CLOP75TA28 PO; +DULO20CA PO; +EMPA1TAB3 PO; +GLIP5TAB12 PO; +INSU1INJ19 SC; +LOSA100T58 PO; +METO25TA5 PO; +OXYC-113 PO
[2023-09-16] MEDS: NITROGLYCERIN 0.4 MG SL TAB SL ONE (17:00)
[2023-09-16] MEDS ORDERED: MORPHINE SULFATE INJ 2 MG/ml SYRG IV PRN (17:30)
[2023-09-16] MEDS ORDERED: SODIUM CHLORIDE 0.9% 1,000 ML IV SCH (17:30)
[2023-09-16] MEDS ORDERED: NITROGLYCERIN 0.4 MG SL TAB SL PRN (17:30)
[2023-09-16] MEDS ORDERED: DEXTROSE (50%) 50ML SYRG IV PRN (17:30)
[2023-09-16] MEDS ORDERED: ERGOCALCIFEROL 50,000 UNIT(1.25MG) CAP PO SCH (18:00)
[2023-09-16 18:04] LABS: Basophils # (auto) 0 10 ^3/uL (0-0.2); Basophils % (auto) 0.2 % (0.0-2.0); Eosinophils # (auto) 0.1 10 ^3/uL (0-0.8); Hematocrit 47.1 % (41.0-53.0); Hemoglobin 15.9 g/dL (13.5-17.5); Lymphocytes # (auto) 1.8 10 ^3/uL (0.4-5.4); Lymphocytes % (auto) 27.3 % (10.0-50.0); Mean Corpuscular Hemoglobin 30.2 pg (28.0-32.0); Mean Corpuscular Hgb Conc. 33.7 g/dL (32.0-36.0); Mean Corpuscular Volume 89.6 fL (80.0-100.0); Monocytes # (auto) 0.6 10 ^3/uL (0-1.3); Monocytes % (auto) 9.4 % (0.0-12.0); Neutrophils # (auto) 4.1 10 ^3/uL (1.6-8.6); Neutrophils % (auto) 62.1 % (37.0-80.0); Nucleated Red Blood Cells % 0.5 %; Red Blood Cells 5.25 10^6/uL (4.5-5.90); Red Cell Distribution Width 14.2 % (11.8-14.3); White Blood Cell 6.5 10^3/uL (4.4-10.8)
[2023-09-16 18:53] LABS: Alanine Aminotransferase 59 U/L (7-40); Albumin 4.4 g/dL (3.2-4.8); Alkaline Phosphatase 139 U/L (46-116); Anion Gap 8 (5-15); Aspartate Aminotransferase 26 U/L (13-40); Bilirubin, Total 0.5 mg/dL (0.2-1.0); Blood Urea Nitrogen 13 mg/dL (9-23); Calcium 9.1 mg/dL (8.5-10.1); Carbon Dioxide 24 mmol/L (20-30); Chloride 107 mmol/L (98-107); Glucose 138 mg/dL (74-106); Potassium 4.2 mmol/L (3.5-5.1); Sodium 139 mmol/L (136-145); Total Protein 6.5 g/dL (5.7-8.2)
[2023-09-16 19:15] VITALS: BP 121/85; PULSE 62; RESP 16; TEMP 98.6; O2SAT 98
[2023-09-16 19:50] LABS: Triglycerides 122 mg/dL (< 150)
[2023-09-16 19:51] LABS: LDL Cholesterol 66 mg/dL (< 100)
[2023-09-16 19:52] LABS: Cholesterol 110 mg/dL (< 200); HDL Cholesterol 26 mg/dL (40-59)
[2023-09-16 23:10] VITALS: O2SAT 98
[2023-09-16] MEDS: DULoxetine HCL 30 MG CAP PO SCH (23:47)
[2023-09-16] MEDS: ATORVASTATIN 20 MG TAB PO SCH (23:47)
[2023-09-16] MEDS: METOPROLOL TARTRATE 25 MG TAB PO SCH (23:52)
[2023-09-16] MEDS: ACCU-CHEK COMFORT CURVE STRIP VI SCH (23:56)
[2023-09-16] MEDS: InsuLIN REG 1unit/0.01ml Soln (100units/ml) SC SCH (23:57)
[2023-09-17] VITALS (8 sets, daily range): BP systolic 92–124; BP diastolic 52–79; PULSE 57–75; RESP 16–18; TEMP 97.6–98.1; O2SAT 94–100
[2023-09-17] MEDS: ACETAMINOPHEN 325 MG TAB PO PRN (00:08)
[2023-09-17] MEDS: LISINOPRIL 20 MG TAB PO SCH (09:59)
[2023-09-17] MEDS: CLOPIDOGREL BISULFATE 75 MG TAB PO SCH (09:59)
[2023-09-17] MEDS: ALLOPURINOL 300 MG TAB PO SCH (09:59)
[2023-09-17] MEDS: ASPirin-EC 81 mg tab PO SCH (09:59)
[2023-09-17] MEDS ORDERED: LOSARTAN POTASSIUM 50 MG TAB PO SCH (10:00)
[2023-09-17] MEDS: ONDANSETRON HCL 4 MG/2 ML VIAL IV PRN (12:05)
[2023-09-17] MEDS: HYDROcodone-ACET 5/325MG TAB PO PRN (12:06)
[2023-09-18] VITALS (9 sets, daily range): BP systolic 108–119; BP diastolic 68–86; PULSE 57–83; RESP 16–17; TEMP 97.5–98.1; O2SAT 91–95
[2023-09-18] MEDS ORDERED: PANT40TA2 PO (08:42)
[2023-09-18] MEDS ORDERED: FLUT1INH6 INH (08:42)
[2023-09-18] MEDS ORDERED: TRAZ-228 PO (08:42)
[2023-09-18] MEDS: ALBUTEROL SULF 2.5 MG/0.5ML(0.5%) NEB SOLN NEB PRN (09:46)
[2023-09-18] MEDS: PANTOPRAZOLE 40 MG TAB PO SCH (10:22)
[2023-09-18] MEDS ORDERED: HYDR-4902 PO (13:18)
[2023-09-18] MEDS: ADENOSINE 100 MG in GIVE UN-DILUTED 0 ML IV ONE (14:05)
== END 2023-09-18 18:00 | disposition home or self-care (01) | DRG 133 ==
LOC: ER 14:58 → EDBD 14:58 → TELE 17:51 → TELE-EAST 22:24
PROVIDERS: ADMIT Nurse Practitioner Family; ATTEND Nurse Practitioner Acute Care
PROC: C23GYZZ Positron Emission Tomographic (PET) Imaging of Myocardium using Other Radionuclide (ICD-10-PCS; principal; 2023-09-16)
DX: J96.21 Acute and chronic respiratory failure with hypoxia (principal); Z99.81 Dependence on supplemental oxygen; I69.351 Hemiplegia and hemiparesis following cerebral infarction affecting right dominant side; E11.9 Type 2 diabetes mellitus without complications; R07.89 Other chest pain; I25.10 Atherosclerotic heart disease of native coronary artery without angina pectoris; E66.01 Morbid (severe) obesity due to excess calories; M10.9 Gout, unspecified; E78.5 Hyperlipidemia, unspecified; I10 Essential (primary) hypertension; Z68.31 Body mass index [BMI] 31.0-31.9, adult; G47.33 Obstructive sleep apnea (adult) (pediatric); Z95.5 Presence of coronary angioplasty implant and graft; I25.2 Old myocardial infarction; Z83.3 Family history of diabetes mellitus
CPT/HCPCS: 36415; 71045; 78452; 80053; 80061; 83880; 84443; 84484; 85025; 85379; 93005; 93017; 94640; G0378; J0153; J1815; J2405

== ENCOUNTER 2024-03-23 02:04 | Emergency (ER) | payer MEDICAID ==
[~2024-03-23] VITALS: Ht 182.9 cm; Wt 104.5 kg
[~2024-03-23 02:04] MED LIST changes: -ATO40T PO; +ATOR-507 PO; -CEPH500C PO; +FLUT1INH6 INH; -GLIP5TAB12 PO; +GLIP5TAB21 PO; +HYDR-4902 PO; -LOSA100T58 PO; -MUPI2OIN2 EX; +PANT40TA2 PO; +TRAZ-228 PO
[2024-03-23 02:39] VITALS: TEMP 98.1
[2024-03-23 02:46] LABS: Basophils # (auto) 0 10 ^3/uL (0-0.2); Basophils % (auto) 0.4 % (0.0-2.0); Eosinophils # (auto) 0.2 10 ^3/uL (0-0.8); Hematocrit 41.8 % (41.0-53.0); Hemoglobin 14.8 g/dL (13.5-17.5); Lymphocytes # (auto) 2.2 10 ^3/uL (0.4-5.4); Lymphocytes % (auto) 29.1 % (10.0-50.0); Mean Corpuscular Hemoglobin 31.2 pg (28.0-32.0); Mean Corpuscular Hgb Conc. 35.4 g/dL (32.0-36.0); Mean Corpuscular Volume 88.2 fL (80.0-100.0); Monocytes # (auto) 0.9 10 ^3/uL (0-1.3); Monocytes % (auto) 12.2 % (0.0-12.0); Neutrophils # (auto) 4.3 10 ^3/uL (1.6-8.6); Neutrophils % (auto) 56.3 % (37.0-80.0); Nucleated Red Blood Cells % 0.2 %; Platelet Count (auto) 254 10^3/uL (140-450); Red Blood Cells 4.74 10^6/uL (4.5-5.90); Red Cell Distribution Width 14.3 % (11.8-14.3); White Blood Cell 7.6 10^3/uL (4.4-10.8)
[2024-03-23 02:53] VITALS: PULSE 65; RESP 21; O2SAT 93
[2024-03-23 02:56] LABS: Alanine Aminotransferase 49 U/L (7-40); Albumin 4.3 g/dL (3.2-4.8); Alkaline Phosphatase 123 U/L (46-116); Anion Gap 7 (5-15); Aspartate Aminotransferase 20 U/L (13-40); BUN/Creatinine Ratio 13.1 (10.0-20.0); Bilirubin, Total 0.5 mg/dL (0.2-1.0); Blood Urea Nitrogen 14 mg/dL (9-23); Calcium 9.4 mg/dL (8.7-10.4); Carbon Dioxide 25 mmol/L (20-30); Chloride 105 mmol/L (98-107); Glucose 198 mg/dL (74-106); Potassium 3.6 mmol/L (3.5-5.1); Sodium 137 mmol/L (136-145)
[2024-03-23 03:00] LABS: INR 1.03 (0.9-1.15); Partial Thromboplastin Time 25.1 SEC (24.5-34.5); Prothrombin Time 10.9 sec (9.3-11.8)
[2024-03-23] MEDS ORDERED: ASPI1TAB20 PO (03:53)
[2024-03-23 04:00] VITALS: BP 130/83; PULSE 70; RESP 17; O2SAT 95
== END 2024-03-23 04:50 | disposition home or self-care (01) ==
LOC: EDUNIT# 02:04 → ER 02:04 → EDBD 02:04 → ER 04:34
DX: R07.89 Other chest pain (principal); E11.9 Type 2 diabetes mellitus without complications; E78.5 Hyperlipidemia, unspecified; I10 Essential (primary) hypertension; I25.2 Old myocardial infarction; Z86.73 Personal history of transient ischemic attack (TIA), and cerebral infarction without residual deficits
CPT/HCPCS: 36415; 71045; 80053; 83735; 83880; 84484; 85025; 85610; 85730; 93005

== ENCOUNTER 2024-11-18 04:25 | Inpatient (IN) | payer MEDICAID, OTHER ==
[~2024-11-18] VITALS: Ht 180.3 cm; Wt 113.0 kg
[~2024-11-18 04:25] MED LIST changes: +ASPI1TAB20 PO
--- NOTE | 2024-11-18 05:00 | ECG ---
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
[2024-11-18] MEDS: ASPirin 81 mg TAB PO ONE ×2 (05:03→06:23)
--- NOTE | 2024-11-18 05:16 | ED.PDOC ---
HPI Comments 59-year-old male came to ER via EMS for chest pains. Patient has history of STEMI status post cardiac stents. States for the past few hours, he has been having intermittent episodes of left-sided chest pains, pressure, radiating down his left arm. Patient states both his lower extremities feels like they are being shocked. Denies any shortness of breath, nausea or vomiting. Blood pressure upon arrival was 122/66 mmHg Chief Complaint: Chest Pain Time Seen by MD: 05:15 Reviewed Notes: Oxyacetylene Cutter Notes Allergies: Coded Allergies: NO KNOWN ALLERGIES (Unverified , 11/18/24) Information Source: Emergency Med Personnel Mode of Arrival: EMS Severity: Moderate Timing: Hours Duration: Intermittent Prehospital treatment: 12 Lead EKG Location: Chest (L) Radiation: Arm (L) Quality: Pressure Onset: At Rest History of: Similar pain in past, DC Associated Signs and Symptoms: Diaphoresis Past Medical History PAST MEDICAL HISTORY: CAD, CVA, DC Surgical History: PTCA Family History Family History: Reviewed,noncontributory to illness Social History Smoker: Non-Smoker Alcohol: Denies ETOH Use Drugs: Denies Drug Use Lives In: Home Constitutional: denies: chills, diaphoresis, fatigue, fever, malaise, sweats, weakness, others EENTM: denies: blurred vision, double vision, ear bleeding, ear discharge, ear drainage, ear pain, ear ringing, eye pain, eye redness, hearing loss, mouth pain, mouth swelling, nasal discharge, nose bleeding, nose congestion, nose pain, photophobia, tearing, throat pain, throat swelling, voice changes, others Respiratory: denies: cough, hemoptysis, orthopnea, SOB at rest, shortness of breath, SOB with excertion, stridor, wheezing, others Cardiovascular: reports: chest pain, left arm pain; denies: dizzy spells, diaphoresis, Dyspnea on exertion, edema, irregular heart beat, lightheadedness, palpitations, PND, syncope, others Gastrointestinal: denies: abdomen distended, abdominal pain, blood streaked bowels, constipated, diarrhea, dysphagia, difficulty swallowing, hematemesis, melena, nausea, poor appetite, poor fluid intake, rectal bleeding, rectal pain, vomiting, others Genitourinary: denies: burning, dysuria, flank pain, frequency, hematuria, inc ontinence, penile discharge, penile sore, pain, testicle pain, testicle swelling, urgency, others Neurological: denies: dizziness, fainting, headache, left sided numbness, left sided weakness, numbness, paresthesia, pre-existing deficit, right sided numbness, right sided weakness, seizure, speech problems, tingling, tremors, weakness, others Musculoskeletal: denies: back pain, gout, joint pain, joint swelling, muscle pain, muscle stiffness, neck pain, others Integumetry: denies: bruises, change in color, change in hair/nails, dryness, laceration, lesions, lumps, rash, wounds, others Allergic/Immunocompromised: denies: Difficulty Healing, Frequent Infections, Hives, Itching, others Hematologic/Lymphatic: denies: anemia, blood clots, easy bleeding, easy bruising, swollen glands, others Endocrine: denies: excessive hunger, excessive sweating, excessive thirst, excessive urination, flushing, intolerance to cold, intolerance to heat, unexplained weight gain, unexplained weight loss, others Psychiatric: denies: anxiety, bipolar disorder, depression, hopeless, panic disorder, schizophrenia, sleepless, suicidal, others Physical Exam General Appearance: No Apparent Distress, Normal HEENT: Normal ENT Inspection, Pharynx Normal, TMs Normal Neck: Full Range of Motion, Non-Tender, Normal, Normal Inspection Respiratory: Chest Non-Tender, Lungs Clear, No Accessory Muscle Use, No Respiratory Distress, Normal Breath Sounds Cardiovascular: No Edema, No JVD, No Murmur, No Gallop, Normal Peripheral Pulses, Regular Rate/Rhythm Breast Exam: Deferred Gastrointestinal: No Organomegaly, Non Tender, No Pulsatile Mass, Normal Bowel Sounds, Soft Genitalia: Deferred Pelvic: Deferred Rectal: Deferred Extremities: No calf tenderness, Normal capillary refill, Normal inspection, Normal range of motion, Non-tender, No pedal edema Musculoskeletal : Apperance: Normal Neurologic: Alert, web programmer II-XII nml as Tested, No Motor Deficits, Normal Affect, Normal Mood, No Sensory Deficits Cerebellar Function: Normal Reflexes: Normal Skin: Dry, Normal Color, Warm Lymphatic: No Adenopathy EKG EKG : Pulse Rate (adult): 60 Cardiac Rhythm: NSR Was a procedure done? Was a procedure done?: No CP Differential Dx Differential Diagnosis: Angina, Anxiety / Panic Attack, Hyperventilation Differential Diagnosis: Angina, Chest Wall Pain, Costochondritis, Esophageal reflux/spasm, Gastritis, Myocardial Infarction, Pneumonia X-Ray, Labs, Meds, VS Vital Signs Date Time Temp Pulse Resp B/P (MAP) Pulse Ox O2 Delivery O2 Flow Rate FiO2 11/18/24 05:16 60 11/18/24 04:32 60 11/18/24 04:25 98.0 60 20 122/66 (84) 95 98.0 Lab Test 11/18/24 05:15 Range/Units White Blood Count Pending Red Blood Count Pending Hemoglobin Pending Hematocrit Pending Mean Corpuscular Volume Pending Mean Corpuscular Hemoglobin Pending Mean Corpuscular Hemoglobin Concent Pending Red Cell Distribution Width Pending Platelet Count Pending Mean Platelet Volume Pending Neutrophils (%) (Auto) Pending Lymphocytes (%) (Auto) Pending Monocytes (%) (Auto) Pending Basophils (%) (Auto) Pending Neutrophils # (Auto) Pending Lymphocytes # (Auto) Pending Monocytes # (Auto) Pending Sodium Level Pending Potassium Level Pending Chloride Level Pending Carbon Dioxide Level Pending Anion Gap Pending Blood Urea Nitrogen Pending Creatinine Pending Glomerular Filtration Rate Calc Pending BUN/Creatinine Ratio Pending Serum Glucose Pending Calcium Level Pending Total Bilirubin Pending Aspartate Amino Transferase (AST) Pending Alanine Aminotransferase (ALT) Pending Alkaline Phosphatase Pending Troponin I High Sensitivity Pending B-Type Natriuretic Peptide Pending Total Protein Pending Albumin Pending Current Medications Medications (Trade) Dose Ordered Sig/Coretta Route Start Time Stop Time Status Last Admin Aspirin 162 mg ONCE ONCE PO 11/18/24 04:45 11/18/24 04:48 DC 11/18/24 05:03 Time of 1ST Reevaluation: 05:10 Reevaluation 1ST: Unchanged Patient Education/Counseling: Diagnosis, Treatment Family Education/Counseling: No Family Present Departure 1 Departure Time of Disposition: 05:52 Impression: Primary Impression: Chest pain Additional Impression: Acute coronary syndrome Disposition: 09 ADMITTED INPATIENT Condition: Stable Comments Chest Pain - Rule Out Acute Coronary Syndrome Chief Complaint: Chest pain History of Present Illness: 59-year-old male presents via EMS with substernal chest pain. Patient reports experiencing a dull pressure-like substernal chest pain for the past 3-4 hours. Notably, patient has a significant cardiac history with cardiac stent placement approximately one year ago. Pain resolved after initial treatment in the ED. Review of Systems: Limited by acute presentation Cardiovascular: Positive for chest pain, as described in HPI Lab Results: Cardiac workup pending Imaging and Other Relevant Results: EKG: Normal sinus rhythm at 60 bpm with possible early repolarization Chest X-ray: Performed, results pending Medical Decision Making: Summary Statement: 59-year-old male with history of coronary artery disease presents with acute onset chest pain, concerning for acute coronary syndrome. Problem List: 1. Acute chest pain 2. History of coronary artery disease with prior stent Differential Diagnosis: 1. Acute coronary syndrome 2. Unstable angina 3. Non-ST elevation myocardial infarction 4. ST elevation myocardial infarction 5. Early repolarization ED Course: Patient received aspirin in ED. Chest pain resolved with treatment. Initial cardiac workup including EKG and chest X-ray performed. Decision made to admit for further evaluation. Assessment and Plan: 1. Acute chest pain/Possible Acute Coronary Syndrome: - Admit to hospital for further cardiac evaluation - Initiated appropriate cardiac workup including EKG, chest X-ray, and laboratory studies - Administered aspirin in ED with improvement in symptoms - Will require serial cardiac enzymes and continued cardiac monitoring 2. Known Coronary Artery Disease: - History of cardiac stent 1 year ago - Will need review of prior cardiac records during admission Billing Information: ICD-10: R07.9 - Chest pain, unspecified ICD-10: I25.110 - Atherosclerotic heart disease of [place] coronary artery with unstable angina pectoris ICD-10: Z95.5 - Presence of coronary angioplasty implant and graft Critical Care Note Critical Care Time?: Yes (35 min-critical care time only) Critical care comment: Active chest pains Stability Stability form required: No Heart Score Heart Score: Heart Score Response (Comments) Value History Slightly Suspicious 0 EKG Repolarization Disturb 1 Age 45-64 1 Risk Factors >3 or Hx ASHD 2 Troponin Normal limit 0 Total 4 I personally scribed for IRENE PINTO MD ([email or web address]) on 11/18/24 at 05:16. Electronically submitted by Epi Zaldivar ([email or web address]). IRENE PINTO MD Nov 18, 2024 05:16
[2024-11-18 05:30] VITALS: PULSE 62; RESP 18; O2SAT 94
[2024-11-18 05:42] LABS: Basophils # (auto) 0 10 ^3/uL (0-0.2); Basophils % (auto) 0.4 % (0.0-2.0); Eosinophils # (auto) 0 10 ^3/uL (0-0.8); Eosinophils % (auto) 0.4 % (0.0-7.0); Hematocrit 45.2 % (41.0-53.0); Hemoglobin 15.5 g/dL (13.5-17.5); Lymphocytes # (auto) 1.8 10 ^3/uL (0.4-5.4); Lymphocytes % (auto) 30.2 % (10.0-50.0); Mean Corpuscular Hemoglobin 30.6 pg (28.0-32.0); Mean Corpuscular Hgb Conc. 34.2 g/dL (32.0-36.0); Mean Corpuscular Volume 89.3 fL (80.0-100.0); Monocytes # (auto) 0.7 10 ^3/uL (0-1.3); Monocytes % (auto) 11.5 % (0.0-12.0); Neutrophils # (auto) 3.4 10 ^3/uL (1.6-8.6); Neutrophils % (auto) 57.5 % (37.0-80.0); Nucleated Red Blood Cells % 0.1 %; Platelet Count (auto) 227 10^3/uL (140-450); Red Blood Cells 5.05 10^6/uL (4.5-5.90)
[2024-11-18 05:51] LABS: Alanine Aminotransferase 26 U/L (7-40); Anion Gap 8 (5-15); Aspartate Aminotransferase 18 U/L (13-40); BUN/Creatinine Ratio 11.4 (10.0-20.0); Blood Urea Nitrogen 10 mg/dL (9-23); Calcium 9.3 mg/dL (8.7-10.4); Carbon Dioxide 25 mmol/L (20-31); Chloride 107 mmol/L (98-107); Glucose 99 mg/dL (74-106); Sodium 140 mmol/L (136-145); Total Protein 6.6 g/dL (5.7-8.2)
[2024-11-18 05:52] LABS: Albumin 4.2 g/dL (3.2-4.8); Bilirubin, Total 0.4 mg/dL (0.2-1.0)
[2024-11-18] MEDS ORDERED: NITROGLYCERIN 0.4 MG SL TAB SL PRN (06:00)
[2024-11-18] MEDS ORDERED: MORPHINE SULFATE INJ 2 MG/ml SYRG IV PRN (06:00)
[2024-11-18] MEDS ORDERED: ACETAMINOPHEN 325 MG TAB PO PRN (06:00)
[2024-11-18 06:03] LABS: Alkaline Phosphatase 134 U/L (46-116)
--- NOTE | 2024-11-18 06:11 | DVHHPRES ---
History of Present Illness Resident Creating Document: COLLEEN MOTTA History of Present Illness Dony Morris is a 59-year-old male patient who presents to the ED with chief complaint of worsening of his chronic intermittent left-sided oppressive chest pain, presented in functional class IV at 8:00 p.m. while he was sleeping (intensity 8/10) was relieved by nitroglycerin until 2:00 a.m., prompting his visit to the ED, patient says that pain worsens with respiration, superficial palpation and moving arms. Associated he also complaint of nausea, vomiting, headache, back pain, dyspnea and electric/crampy pain in bilateral legs. Patient presents chronic stable angina normally in functional class I-II since 2021, he presented multiple PCIs with minimum of two BELLA placed, last coronary angiography was in 2023 which was non revascularized. Denies palpitation, syncope, fever, chills, diarrhea, constipation, sick contacts, bleeding and motor or sensory deficits. Past medical history: Hypertension, dyslipidemia, diabetes, coronary artery disease status post multiple PCI, CVA in 2001. Surgical history: Multiple PCIs (2021, 2022 and 2023), with a total of at least 2 BELLA, last coronary angiography coronary intervention was not plausible. Family history: Mother has diabetes Social history: Lives in [place] with family (next of kin is ) ex tobacco abuse (one pack-year history of smoking). Denies current tobacco, alcohol and other drug abuse Allergies: Denies Home medication: Does not recall. Patient seen and examined at bedside. Currently complains of mild retrosternal oppressive chest pain which reproduces with palpation in respiration. EKG shows sinus rhythm with no ST alteration. Troponin 1st one was negative (11). Past Medical History Per HPI Past Surgical History Per HPI Family History Per HPI Past Social History Per HPI Review of Systems Review of Systems Per HPI Allergies: Coded Allergies: NO KNOWN ALLERGIES (Unverified , 11/18/24) Medications Current Medications Medications Dose Ordered Sig/Coretta Route Start Time Stop Time Status Last Admin Dose Admin Acetaminophen 650 mg Q6HP PRN PO 11/18/24 06:00 Ondansetron HCl 4 mg Q4HP PRN IV 11/18/24 06:00 Morphine Sulfate 2 mg Q4HPRN PRN IV 11/18/24 06:00 UNV Enoxaparin Sodium 40 mg DAILY SC 4/25/25 10:00 UNV Nitroglycerin 0.4 mg Q5MINP PRN SL 11/18/24 06:00 Morphine Sulfate 2 mg Q30M PRN IV 11/18/24 06:00 UNV Atorvastatin Calcium 40 mg HS PO 11/18/24 22:00 Aspirin 81 mg DAILY PO 11/18/24 10:00 Exam Vital Signs Vital Signs Date Time Temp Pulse Resp B/P (MAP) Pulse Ox O2 Delivery O2 Flow Rate FiO2 11/18/24 05:16 60 11/18/24 04:25 98.0 20 122/66 (84) 95 98.0 Exam Patient lying in bed, in no acute distress General: Lucid, afebrile, mucosae are moist Cardiovascular: Normal S1 and S2. No murmurs, gallops or rubs Respiratory: Normal ventilation mechanics. Clear lung sounds on auscultation Abdomen: Soft, nontender, no organomegaly, normal bowel sounds MSK/skin: Mobilizes 4 limbs. Skin is dry and warm Neurological: Oriented in 3 spheres. No motor no sensitive deficits. Pupils are isocoric and reactive Labs/Xrays Labs Test 11/18/24 05:15 Range/Units White Blood Count 6.0 4.4-10.8 10^3/uL Red Blood Count 5.05 4.5-5.90 10^6/uL Hemoglobin 15.5 13.5-17.5 g/dL Hematocrit 45.2 41.0-53.0 % Mean Corpuscular Volume 89.3 80.0-100.0 fL Mean Corpuscular Hemoglobin 30.6 28.0-32.0 pg Mean Corpuscular Hemoglobin Concent 34.2 32.0-36.0 g/dL Red Cell Distribution Width 14.0 11.8-14.3 % Platelet Count 227 140-450 10^3/uL Mean Platelet Volume 7.1 6.9-10.8 fL Neutrophils (%) (Auto) 57.5 37.0-80.0 % Lymphocytes (%) (Auto) 30.2 10.0-50.0 % Monocytes (%) (Auto) 11.5 0.0-12.0 % Eosinophils (%) (Auto) 0.4 0.0-7.0 % Basophils (%) (Auto) 0.4 0.0-2.0 % Neutrophils # (Auto) 3.4 1.6-8.6 10 ^3/uL Lymphocytes # (Auto) 1.8 0.4-5.4 10 ^3/uL Monocytes # (Auto) 0.7 0-1.3 10 ^3/uL Eosinophils # (Auto) 0 0-0.8 10 ^3/uL Basophils # (Auto) 0 0-0.2 10 ^3/uL Nucleated Red Blood Cells 0.1 % Sodium Level 140 136-145 mmol/L Potassium Level 4.0 3.5-5.1 mmol/L Chloride Level 107 98-107 mmol/L Carbon Dioxide Level 25 20-31 mmol/L Anion Gap 8 5-15 Blood Urea Nitrogen 10 9-23 mg/dL Creatinine 0.88 0.700-1.30 mg/dL Glomerular Filtration Rate Calc 100 >90 mL/min BUN/Creatinine Ratio 11.4 10.0-20.0 Serum Glucose 99 74-106 mg/dL Calcium Level 9.3 8.7-10.4 mg/dL Total Bilirubin 0.4 0.2-1.0 mg/dL Aspartate Amino Transferase (AST) 18 13-40 U/L Alanine Aminotransferase (ALT) 26 7-40 U/L Alkaline Phosphatase 134 H 46-116 U/L Troponin I High Sensitivity 11 </=54 ng/L Total Protein 6.6 5.7-8.2 g/dL Albumin 4.2 3.2-4.8 g/dL Assessment/Plan Assessment/Plan Assessment: Unstable angina Coronary artery disease status post multiple PCIs Hypertension Dyslipidemia Diabetes Obesity History of CVA Plan: Pending repeat EKG and troponin. First once obtained showed no ST alteration and troponin was negative. Pain impresses noncardiac (reproduces with palpation, inspiration and moving upper arms), but patient does have significant coronary artery disease history and per patient pain is relieved by nitroglycerin. Ordered echocardiogram Consulted Cardiology (Dr. Rebolledo is his claims associate) Continue aspirin atorvastatin at this point. On enoxaparin DVT prophylaxis. No need for heparin drip. Goals of care discussed with patient for over 18 minutes: Full code status Discussed plan with Dr. Gonzales, patient and nurses: Pending complementary workup for unstable angina. Consulted Cardiology to evaluate need of stress test versus coronary angiography. Plan discussed with: Patient, Other (Nurses) My Orders Orders - COLLEEN MOTTA RESIDENT Procedure Category Date Status Time Admit ADMIT 11/18/24 Transmitted 05:51 Code Status CODE 11/18/24 Transmitted 05:51 Vital Signs [facility] 11/18/24 In Process 05:51 Review Orders With DANIE 11/18/24 In Process Adm. 05:51 Npo (Nothing By DIET 11/18/24 Transmitted Mouth) Diet Breakfast Acetaminophen Tablet [facility]A 11/18/24 In Process (Tylenol Tablet) 06:00 Notify Of Changes [facility] 11/18/24 In Process From Base 05:51 Advance Directive [facility] 11/18/24 In Process 05:51 Echo 2d Mode Cardiac US 11/18/24 Logged DOP 05:51 Patient Condition ORDERS 11/18/24 Transmitted 05:51 Allergies [facility] 11/18/24 In Process 05:[address] [facility] 11/18/24 In Process (Zofran) 06:00 Morphine Sulfate PHA 11/18/24 Pending Injection 06:00 Enoxaparin Sodium [facility]A 11/18/24 Pending (Lovenox) 10:[address] [facility] 11/18/24 In Process Sublingual (Ntrostat 06:00 Morphine Sulfate PHA 11/18/24 Pending Injection 06:00 Oxygen By Nasal RT 11/18/24 Transmitted Cannula 05:51 Stat Ekg For Chest [facility] 11/18/24 In Process Pain 05:51 Notify Md Of Changes [facility] 11/18/24 In Process From Base 05:51 Concrete Layer For [facility] 11/18/24 In Process 24 Hours 05:51 Emergency Dysrhythmia [facility] 11/18/24 In Process Protocol 05:51 Rhythm Strips Once [facility] 11/18/24 In Process Every Shift 05:51 Atorvastatin (Lipitor) [facility] 11/18/24 In Process 22:00 Aspirin Tablet [facility] 11/18/24 In Process 10:00 Date of Service: Nov 18, 2024 Billing Provider: WILBERTO GONZALES MD Common Visit Codes: [id number] INP/OBS CARE (HIGH) COLLEEN MOTTA RESIDENT Nov 18, 2024 06:11 WILBERTO GONZALES MD Nov 18, 2024 11:49
--- NOTE | 2024-11-18 06:15 | DVH ---
CHEST RADIOGRAPH Indication: chest pain Technique: Single frontal view of the chest was obtained Comparison: None FINDINGS: Lines and Tubes: None Lungs: No focal consolidation. Pleura: No effusion. No pneumothorax. Cardiomediastinal contours: Unremarkable Bones: No acute osseous abnormality. IMPRESSION: 1. No acute cardiopulmonary disease.
[2024-11-18] MEDS: ONDANSETRON HCL 4 MG/2 ML VIAL IV PRN (06:33)
[2024-11-18] MEDS: MORPHINE SULFATE 4 MG/ML SYR/VIAL IV ONE (06:34)
[2024-11-18] MEDS: ATORVASTATIN 20 MG TAB PO ONE (06:35)
[2024-11-18 07:34] LABS: Phosphorus 3.2 mg/dL (2.4-5.1)
[2024-11-18 07:39] LABS: INR 1.03 (0.9-1.15); Prothrombin Time 10.9 sec (9.3-11.8)
[2024-11-18] MEDS: ASPirin 81 mg TAB PO SCH (11:15)
[2024-11-18] MEDS: IBUPROFEN 400 MG TAB PO ONE (11:15)
[2024-11-18] MEDS: ENOXAPARIN SOD 40 MG/0.4 ML SYRINGE SC SCH (11:16)
[2024-11-18 11:32] LABS: Urine Bacteria None Seen /hpf (None Seen)
[2024-11-18 11:56] LABS: Urine Blood Negative /uL (Negative); Urine Clarity Clear (Clear); Urine Color Light-Yellow (Yellow); Urine Protein, UAD Negative (Negative); Urine Specific Gravity 1.029 (1.001-1.035); Urine Squamous Epithelial Cell FEW /hpf (<5); Urine Urobilinogen Normal (Negative); Urine WBC < 1 /HPF (0-3); Urine pH 5.5 (5.0-9.0)
[2024-11-18 11:57] LABS: Benzodiazephine Screen, Urine Neg (NEGATIVE); Opiate Scree,Urine Neg (NEGATIVE)
[2024-11-18 12:00] VITALS: BP 110/70; PULSE 52; RESP 14; TEMP 98.1; O2SAT 97
[2024-11-18 12:01] LABS: Amphetamine Screen, Urine Neg (NEGATIVE); Barbiturate Scree,Urine Neg (NEGATIVE); Cannabinoid Screen, Urine Neg (NEGATIVE); Cocaine Screen, Urine Neg (NEGATIVE); Phencyclidine Screen, Urine Neg (NEGATIVE)
--- NOTE | 2024-11-18 14:05 | DVHPNRES ---
Progress Note Date Seen: Nov 18, 2024 Resident Creating Document: BRETT PEREZ RESIDENT Medical Necessity Reason Pt with a Central, PICC or Fol: No Subjective Review of Systems Patient seen and examined at bedside. Complaining of chest pain located on left-sided which worsened with movement. Point tenderness over left-sided chest. Not worsening with exertion. ROS Eyes: No Pain, No Vision change, No Conjunctivae inflammation, No Eyelid inflammation, No Other, No Redness ENT: No Ear pain, No Ear discharge, No Nose pain, No Nose discharge, No Nose congestion, No Mouth pain, No Mouth swelling, No Throat pain, No Throat swelling, No Other Cardiovascular: Chest Pain, No Palpitations, No Orthopnea, No Paroxysmal Noc. Dyspnea, No Edema, No Lt Headedness, No Other Respiratory: No Cough, No Dry, No Shortness of breath, No SOB with excertion, No Wheezing, No Hemoptysis, No Pleuritic Pain, No Sputum, No Other Gastrointestinal: No Nausea, No Vomiting, No Abdominal Pain, No Diarrhea, No Constipation, No Melena, No Hematochezia, No Other Genitourinary: No Dysuria, No Frequency, No Incontinence, No Hematuria, No Retention, No Other Musculoskeletal: No other, No neck pain, No shoulder pain, No arm pain, No back pain, No hand pain, No leg pain, No foot pain Skin: No Rash, No Lesions, No Jaundice, No Bruising, No Other Objective vital signs Vital Sign Date Time Temp Pulse Resp B/P (MAP) Pulse Ox O2 Delivery O2 Flow Rate FiO2 11/18/24 12:00 98.1 52 14 110/70 (83) 97 98.1 11/18/24 08:37 Room Air* 0 21 21 medications Current Medications Medications Dose Ordered Sig/Coretta Route Start Time Stop Time Status Last Admin Dose Admin Acetaminophen 650 mg Q6HP PRN PO 11/18/24 06:00 Ondansetron HCl 4 mg Q4HP PRN IV 11/18/24 06:00 11/18/24 06:33 4 MG Morphine Sulfate 2 mg Q4HPRN PRN IV 11/18/24 06:00 Enoxaparin Sodium 40 mg DAILY SC 11/18/24 10:00 11/18/24 11:16 40 MG Nitroglycerin 0.4 mg Q5MINP PRN SL 11/18/24 06:00 Morphine Sulfate 2 mg Q30M PRN IV 11/18/24 06:00 Atorvastatin Calcium 40 mg HS PO 11/18/24 22:00 Aspirin 81 mg DAILY PO 11/18/24 10:00 11/18/24 11:15 81 MG Examination General Appearance: Cooperative. Well developed. Well nourished. NAD Head Exam: Normal inspection Neck Exam: Normal inspection. Non-tender. Normal alignment Pulmonary/Respiratory: Chest non-tender. Clear bilateral breath sounds Cardiovascular/Chest: Regular rate and rhythm. No murmurs. No JVD. Peripheral Pulses: 2+ Radial (R). 2+ Radial (L). 2+ Pedal (R). 2+ Pedal (L) Abdominal Exam: Normal bowel sounds. Soft. Nontender. No hepatospenomegaly. No masses Ankle Exam: Negative ankle edema Lower extremities: Negative lower extremity edema Neuro/Mental Status: A&O x4. Coherent Thoughts/Psych: Normal thought pattern. Appropriate mood and affect. Good judgement and insight Appearance: In no acute distress Skin Exam: Normal inspection. Normal color. Warm. Dry laboratory and microbiology Laboratory Tests 11/18/24 05:15 Test 11/18/24 05:15 Range/Units Serum Glucose 99 74-106 mg/dL Problem List/Assessment/Plan Problem List/Assessment/Plan Chest pain likely due to unstable angina History of Coronary artery disease with multiple PTCA Diabetes mellitus type 2 HGB A1c 6.6% on 11/18/2024 Hypertension Dyslipidemia Morbid obesity BMI 34.7 History of CVA Sinus bradycardia Plan/recommendation EKG showed sinus bradycardia, troponin and trending. No significant ST or T elevation. Cardiology consultation has been done. Primarily pain is likely noncardiac given reproducible with palpation, worsened with movement. Not associated with exertion. Given patient has significant history of coronary artery disease, cardiology has been consulted. Continue with aspirin 81 mg p.o. daily, atorvastatin 40 mg p.o. daily, not indicated for heparin drip. Cardiac diet DVT prophylaxis with enoxaparin Goals of care discussed greater than 24 minutes, full code status. Plan discussed with Dr. Webb Plan discussed with: Patient, Other (RN) Date of Service: Nov 18, 2024 Billing Provider: BAY WEBB DO Common Visit Codes: [id number] INP/OBS CARE(HIGH) BRETT PEREZ RESIDENT Nov 18, 2024 14:05 BAY WEBB DO Nov 19, 2024 22:43
[2024-11-18 16:00] VITALS: PULSE 52; RESP 18; O2SAT 95
[2024-11-18 17:14] VITALS: BP 117/65; PULSE 52; RESP 18; TEMP 98.4; O2SAT 95
--- NOTE | 2024-11-18 18:16 | DVHINCON2 ---
Date Seen: Nov 18, 2024 Referring Physician MD Nathaly resident Reason for Consultation Unstable angina History of Present Illness This is a [place]-speaking 59-year-old male patient who presents to the emergency room with chief complaint of chest pain. The patient reports he has been experiencing chest pain for the last three years. He describes more intensity in his pain yesterday which prompted him to come to the emergency room for further evaluation. He describes the pain as unprovoked, intermittent, pressure-like in nature, left-sided with right arm numbness. He does report relief with sublingual nitroglycerin that he took at home. Initial twelve lead electrocardiogram reveals normal sinus rhythm without any significant ST segment changes. Initial troponin level of 11ng/L with flat trend thereafter. Significant past medical history includes coronary artery disease status post PTCA x2 BELLA (on Plavix and aspirin), myocardial infarction, hypertension, dyslipidemia, type 2 diabetes mellitus, and obesity. 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 Of note, the patient underwent a coronary angiogram with left heart catheterization on 07/31/2023 in which a stent was placed to the right diagonal. The patient reports he was also seen at [facility] in June of 2024 where he states that he underwent a coronary angiogram without catheter based intervention. Past Medical History Past medical history reviewed. No other significant than mentioned above. Past Surgical History Multiple PTCAs Family History: Patient reports no known family medical history. Family History Family history reviewed. Social History Denies the use of tobacco, alcohol or illicit drugs. Allergies: Coded Allergies: NO KNOWN ALLERGIES (Unverified , 09/16/23) Home Meds Active Scripts Aspirin (Aspir-81) 81 Mg Tab, 1 TAB PO DAILY, #30 TAB 5 Refills Prov:ALEXANDRE CARVALHO MD 03/23/24 Hydrocodone-Acetaminophen (Hydrocodone Bitartrate/AC 5-325 mg) 1 Tab Tab, 1 TAB PO Q6HP PRN for 5 Days, #20 TAB Prov:HERON LAWRENCE GRAIN BLENDER 09/18/23 Ibuprofen Micronized (Ibuprofen) 600 Mg Tab, 1 TAB PO Q8HR, #20 TAB as needed for pain Prov:LORENZA HAMMOND GRAIN BLENDER 05/10/23 Lisinopril (Lisinopril) 20 Mg Tab, 20 MG PO DAILY for 30 Days, #30 TAB Prov:WILBERTO EDMONDS MD 10/01/22 Atorvastatin Calcium (Lipitor) 40 Mg Tab, 1 TAB PO QPM, #90 TAB 1 Refill Prov:WILBERTO EDMONDS MD 10/01/22 Ergocalciferol (VITAMIN D 14220 UNIT) 50,000 [place], [address] UNIT PO Q7D for 12 Days, #12 CAP Prov:WILBERTO EDMONDS MD 10/01/22 Aspirin (Aspirin Low Dose) 81 Mg Tab, 81 MG PO DAILY for 30 Days, #30 TAB Prov:WILBERTO EDMONDS MD 10/01/22 Reported Medications Pantoprazole Sodium Sesquihydr (Protonix) 40 Mg Tab, 1 TAB PO DAILY 09/18/23 Fluticasone Furoate-Vilanterol (Breo Ellipta 200-25 Mcg/INH) 1 Inh Inh, 1 PUFF INH DAILY 09/18/23 Trazodone Hcl (Trazodone Hcl) 100 Mg Tab, 1 TAB PO DAILY 09/18/23 Empagliflozin (Jardiance) 25 Mg Tab, 25 MG PO, TAB 07/29/23 Oxycodone W/ Acetaminophen (Endocet) 1 Tab Tab, 1 TAB PO QIDPRN, #120 TAB 07/29/23 Metoprolol Tartrate (Metoprolol Tartrate) 25 Mg Tab, 25 MG PO BID for 30 Days, MG 07/29/23 Duloxetine Hcl (Cymbalta) 20 Mg Cap, 30 MG PO HS, CAP 07/29/23 Clopidogrel Bisulfate (Plavix) 75 Mg Tab, 75 MG PO DAILY, TAB 07/29/23 Glipizide (Glipizide) 5 Mg Tab, 5 MG PO DAILY@BREAKFAST for 30 Days, MG 07/29/23 Insulin Glargine (Basaglar Kwikpen) 100 Unit/Ml Inj, 20 UNIT SC DAILY, INJ 07/29/23 Allopurinol (ZYLOPRIM TABLET) 300 Mg Tb, 1 TAB PO DAILY, #30 TAB 5 Refills 10/24/22 Sitagliptin Phosphate (Januvia) 100 Mg Tab, 1 TAB PO DAILY 10/01/22 Home Meds Home medications reviewed. Current Medications Current Medications Medications (Trade) Dose Ordered Sig/Coretta Route PRN Reason Start Time Stop Time Status Last Admin Acetaminophen (Tylenol Tablet) 650 mg Q6HP PRN PO PAIN SCALE 1-3 OR TEMP>100.4 11/18/24 06:00 Ondansetron HCl (Zofran) 4 mg Q4HP PRN IV NAUSEA / VOMITING 11/18/24 06:00 11/18/24 06:33 Morphine Sulfate 2 mg Q4HPRN PRN IV SEVERE PAIN (7-10 PAIN SCALE) 11/18/24 06:00 Enoxaparin Sodium (Lovenox) 40 mg DAILY SC 11/18/24 10:00 11/18/24 11:16 Nitroglycerin (Ntrostat Sublingual) 0.4 mg Q5MINP PRN SL FOR CHEST PAIN 11/18/24 06:00 Morphine Sulfate 2 mg Q30M PRN IV FOR CHEST PAIN 11/18/24 06:00 Atorvastatin Calcium (Lipitor) 40 mg HS PO 11/18/24 22:00 Aspirin 81 mg DAILY PO 11/18/24 10:00 11/18/24 11:15 Review of Systems Constitutional: No symptom reported Ears, Nose, & Throat: No symptom reported Eyes: No symptom reported Neurological: No symptoms reported Pulmonary/Respiratory: No symptoms reported Cardiovascular: Chest pain Gastrointestinal: No symptom reported Genitourinary: No symptom reported Musculoskeletal: No symptom reported Skin: No symptom reported Psychiatric: No symptom reported Endocrine: No symptom reported Hematologic/Lymphatic: No symptom reported Vital Signs Vital Signs Date Time Temp Pulse Resp B/P (MAP) Pulse Ox O2 Delivery O2 Flow Rate FiO2 11/18/24 17:14 98.4 52 18 117/65 (82) 95 98.4 11/18/24 08:37 Room Air* 0 21 21 Physical Exam General Appearance: Cooperative. Obese Pulmonary/Respiratory: Clear, bilateral breaths sounds. Cardiovascular/Chest: Regular rate and rhythm. Peripheral Pulses: 2+ Radial (R). 2+ Radial (L). 2+ Pedal (R). 2+ Pedal (L) Abdominal Exam: Normal bowel sounds. Ankle Exam: Negative ankle edema Lower extremities: Negative lower extremity edema Neuro/Mental Status: A/OX4, coherent. Thoughts/Psych: Normal thought pattern. Appropriate mood and affect. Good judgment and insight. Appearance: No acute distress. Skin Exam: Normal inspection. Normal color. Warm and dry. Labs/Diagnostic Data Labs Test 11/18/24 11:31 11/18/24 08:01 11/18/24 07:19 11/18/24 05:15 Range/Units Urine Color Light-yellow Yellow Urine Clarity Clear Clear Urine pH 5.5 5.0-9.0 Urine Specific [place] 1.029 1.001-1.035 Urine Protein Negative Negative Urine Ketones Negative Negative Urine Blood Negative Negative /uL Urine Nitrite Negative Negative Urine Bilirubin Negative Negative Urine Urobilinogen Normal Negative mg/dL Urine Leukocyte Esterase Negative Negative /uL Urine RBC 1 0 - 3 /hpf Urine Microscopic WBC < 1 0-3 /HPF Urine Squamous Epithelial Cells Few <5 /hpf Urine Bacteria None seen None Seen /hpf Urine Glucose 4+ H Normal mg/dL Urine Opiates Screen Neg NEGATIVE Urine Fentanyl Screen Neg NEGATIVE Urine Barbiturates Screen Neg NEGATIVE Urine Phencyclidine Screen Neg NEGATIVE Urine Amphetamines Screen Neg NEGATIVE Urine Benzodiazepines Screen Neg NEGATIVE Urine Cocaine Screen Neg NEGATIVE Urine Cannabinoids Screen Neg NEGATIVE Troponin I High Sensitivity 10 </=54 ng/L Lactic Acid Level 1.6 0.4-2.0 mmol/L White Blood Count 6.0 4.4-10.8 10^3/uL Red Blood Count 5.05 4.5-5.90 10^6/uL Hemoglobin 15.5 13.5-17.5 g/dL Hematocrit 45.2 41.0-53.0 % Mean Corpuscular Volume 89.3 80.0-100.0 fL Mean Corpuscular Hemoglobin 30.6 28.0-32.0 pg Mean Corpuscular Hemoglobin Concent 34.2 32.0-36.0 g/dL Red Cell Distribution Width 14.0 11.8-14.3 % Platelet Count 227 140-450 10^3/uL Mean Platelet Volume 7.1 6.9-10.8 fL Neutrophils (%) (Auto) 57.5 37.0-80.0 % Lymphocytes (%) (Auto) 30.2 10.0-50.0 % Monocytes (%) (Auto) 11.5 0.0-12.0 % Eosinophils (%) (Auto) 0.4 0.0-7.0 % Basophils (%) (Auto) 0.4 0.0-2.0 % Neutrophils # (Auto) 3.4 1.6-8.6 10 ^3/uL Lymphocytes # (Auto) 1.8 0.4-5.4 10 ^3/uL Monocytes # (Auto) 0.7 0-1.3 10 ^3/uL Eosinophils # (Auto) 0 0-0.8 10 ^3/uL Basophils # (Auto) 0 0-0.2 10 ^3/uL Nucleated Red Blood Cells 0.1 % Prothrombin Time 10.9 9.3-11.8 sec Prothrombin Time INR 1.03 0.9-1.15 Activated Partial Thromboplast Time 27.0 24.5-34.5 SEC Sodium Level 140 136-145 mmol/L Potassium Level 4.0 3.5-5.1 mmol/L Chloride Level 107 98-107 mmol/L Carbon Dioxide Level 25 20-31 mmol/L Anion Gap 8 5-15 Blood Urea Nitrogen 10 9-23 mg/dL Creatinine 0.88 0.700-1.30 mg/dL Glomerular Filtration Rate Calc 100 >90 mL/min BUN/Creatinine Ratio 11.4 10.0-20.0 Serum Glucose 99 74-106 mg/dL Hemoglobin A1c 6.6 H <5.7 % A1C Calcium Level 9.3 8.7-10.4 mg/dL Phosphorus Level 3.2 2.4-5.1 mg/dL Magnesium Level 2.0 1.6-2.6 mg/dL Total Bilirubin 0.4 0.2-1.0 mg/dL Aspartate Amino Transferase (AST) 18 13-40 U/L Alanine Aminotransferase (ALT) 26 7-40 U/L Alkaline Phosphatase 134 H 46-116 U/L B-Type Natriuretic Peptide 19.02 0-100 pg/mL Total Protein 6.6 5.7-8.2 g/dL Albumin 4.2 3.2-4.8 g/dL Triglycerides Level 374 H < 150 mg/dL Cholesterol Level 104 < 200 mg/dL LDL Cholesterol 51 < 100 mg/dL HDL Cholesterol 24 L 40-59 mg/dL Vitamin B12 Level 240 211-911 pg/mL Vitamin D 25-Hydroxy 41.2 30.0-100 ng/mL Thyroid Stimulating Hormone (TSH) 2.19 0.55-4.78 uIU/mL Assessment Chest pain, possibly unstable angina Coronary artery disease status post PTCA x2 BELLA (on Plavix and aspirin) History myocardial infarction Hypertension Dyslipidemia Type 2 diabetes mellitus Morbid obesity Plan/Recommendation We will continue with the following plan/recommendations (): * Transthoracic echocardiogram reveals EF 65% * Chest pain protocol * HEART score: 4 points * Continue dual antiplatelet therapy * Initiate isosorbide mononitrate * Lipid-lowering agent * Close Cardiac surveillance Patient seen and examined at bedside with . The patient underwent a c oronary angiogram with left heart catheterization on 07/31/2023 in which a stent was placed to the right diagonal. The patient also reports he was also seen at [facility] in June of 2024 where he states that he underwent another coronary angiogram without catheter based intervention. We will proceed with medical management at this time. Thank you for allowing us to care for this patient. Please call with any questions or concerns. Critical care time spent: 44 minutes This medical document was created using an electronic medical record system with voice recognition software and computerized dictation system. Although this document has been carefully reviewed, there might still be some phonetic and typographical errors. Occasional wrong-word or ``sound-alike substitutions may have occurred due to the inherent limitations of voice recognition software. These areas are purely typographical due to imperfections of the software programs and do not reflect any compromise in the patient's medical care. Please read the chart carefully and recognize, using context, where these substitutions have occurred. Plan discussed with: Patient NYHA Physical activity limitations: NA Date of Service: Nov 18, 2024 Billing Provider: NATASHA AUSTIN Cardiology Common Codes: [id number] INP/OBS CARE (High) Cardiology Consultation Codes: [id number] CONSULT <45MIN NATASHA AUSTIN Nov 18, 2024 18:16
[2024-11-18 20:00] VITALS: PULSE 68
[2024-11-18 21:00] VITALS: BP 122/75; PULSE 66; RESP 18; TEMP 97.6; O2SAT 94
--- NOTE | 2024-11-18 21:23 | DVHSR ---
APPROVED REPORT EXAM: Two-dimensional and M-mode echocardiogram with Doppler and color Doppler. Blood Pressure: 118/79 mmHg INDICATION Chest Pain RISK FACTORS Obesity: Height: 5'11, Weight: 249 DIMENSIONS LVDd4.0 (3.8-5.7cm)LA (2D)3.2 (1.9-4.0cm)Aortic Root4.1 (2.0-3.7cm) LVDs2.5 (2.5-4.0cm)LA (MM) (1.9-4.0cm)Aortic Cusp Exc2.0 (1.5-2.0cm) EF (%) 55.0 (55-70%)Rt. Atrium3.3 (1.9-4.0cm)Asc. Aorta3.4 cm IVSd0.9 (0.7-1.1cm)RV (D)4.2 (1.8-2.4cm) PWd1.1 (0.7-1.1cm) Mitral Valve MitralMitral Stenosis E wave0.68m/sMV Mean GR.mmHg A wave0.55m/sMV Peak GR.27mmHg E/A ratio1.22D MVAcm2 DECEL [id number] 1/2 Timems Aortic Valve Aortic ValveAortic Stenosis V10.79m/Tony Mean GR.2mmHg V20.86m/Tony Peak GR.3mmHg LVOT Diameter2.3 (1.8-2.4cm)Doppler AVA3.81cm2 Pulmonic Valve V20.94m/s Tricuspid Valve TR Velocity1.83m/s [id number] Other Information Quality : Technically LimitedRhythm : Technically limited study due to patient position.body habitus. Conclusion 1. MILD LVH AND MILD LV DIASTOLIC DYSFUNCTION LV EF IS 65% 2. MODERATELY DILATED RV AND IS HYPOKINETIC 3. GROSSLY NORMAL VALVES 4. NO EFFUSION
--- NOTE | 2024-11-18 21:47 | DVHINCON2 ---
Date Seen: Nov 18, 2024 Referring Physician MD Nathaly resident Reason for Consultation Unstable angina History of Present Illness This is a [place] Islander-speaking 59-year-old male with a past medical history of coronary artery disease status post PTCA x2 BELLA (on Plavix and aspirin), myocardial infarction, hypertension, dyslipidemia, type 2 diabetes mellitus, and obesity who presents to the emergency room with a complaint of chest pain. The patient reports he has been experiencing chest pain for the last three years. He describes a more intensity in his pain yesterday which prompted him to come to the emergency room for further evaluation. He describes the pain as unprovo ked, intermittent, pressure-like in nature, left-sided with right arm numbness. He does report relief with sublingual nitroglycerin that he took at home. Initial twelve lead electrocardiogram reveals normal sinus rhythm without any significant ST segment changes. Initial troponin level of 11ng/L with flat trend thereafter. Chest x-ray showed NAD. Patient currently follows up with me in the outpatient setting. Of note, the patient underwent a coronary angiogram with left heart catheterization on 07/31/2023 in which a stent was placed to the right diagonal. The patient reports he was also seen at [facility] in June of 2024 where he states that he underwent a coronary angiogram without catheter based intervention. Patient was admitted to the hospital. I am asked to consult on this patient. Past Medical History Past medical history reviewed. No other significant than mentioned above. Past Surgical History Multiple PTCAs Family History: Patient reports no known family medical history. Allergies: Coded Allergies: NO KNOWN ALLERGIES (Unverified , 11/18/24) Home Meds Reported Medications Metoprolol Tartrate (Lopressor) 25 Mg Tb, 1 TAB PO BID 11/18/24 Atorvastatin Calcium (ATORVASTATIN CALCIUM) 80 Mg Tab, 1 TAB PO DAILY 11/18/24 Clopidogrel Bisulfate (CLOPIDOGREL) 75 Mg Tab, 1 TAB PO DAILY 11/18/24 Pantoprazole Sodium Sesquihydr (Pantoprazole Sodium) 40 Mg Tab, 1 TAB PO DAILY 11/18/24 Losartan Potassium (Losartan Potassium) 100 Mg Tab, 1 TAB PO DAILY 11/18/24 Empagliflozin (Jardiance) 10 Mg Tab, 1 TAB PO DAILY 11/18/24 Semaglutide (Rybelsus) 3 Mg Tab, 1 TAB PO DAILY 11/18/24 Nitroglycerin (NTROSTAT SUBLINGUAL) 0.4 Mg Sl 11/18/24 Allopurinol (Allopurinol) 300 Mg Tab, 1 TAB PO DAILY 11/18/24 Aspirin (Aspirin Low Dose) 81 Mg Tab, 1 TAB PO DAILY 11/18/24 Duloxetine HCl (Duloxetine HCl) 30 Mg Cap, 1 CAP PO DAILY 11/18/24 Insulin Glargine (Basaglar Kwikpen) 100 Unit/Ml Inj, SC 11/18/24 Temazepam (Restoril) 15 Mg Cp, 1 CAP PO QHSP PRN for INSOMNIA 11/18/24 Continuous Blood Glucose Syste (Dexcom G7 Overnight Cashier) 1 Mis Mis 11/18/24 Ranolazine (Ranolazine ER) 500 Mg Tab, 1 TAB PO BID 11/18/24 Hydrochlorothiazide (Hydrochlorothiazide) 12.5 Mg Cap, 1 CAP PO DAILY 11/18/24 Isosorbide Mononitrate (Isosorbide Mononitrate ER) 60 Mg Tab, 1 TAB PO QAM 11/18/24 Glipizide (Glipizide) 5 Mg Tab, 1 TAB PO DAILY 11/18/24 Current Medications Current Medications Medications (Trade) Dose Ordered Sig/Coretta Route PRN Reason Start Time Stop Time Status Last Admin Acetaminophen (Tylenol Tablet) 650 mg Q6HP PRN PO PAIN SCALE 1-3 OR TEMP>100.4 11/18/24 06:00 Ondansetron HCl (Zofran) 4 mg Q4HP PRN IV NAUSEA / VOMITING 11/18/24 06:00 11/18/24 06:33 Morphine Sulfate 2 mg Q4HPRN PRN IV SEVERE PAIN (7-10 PAIN SCALE) 11/18/24 06:00 Enoxaparin Sodium (Lovenox) 40 mg DAILY SC 11/18/24 10:00 11/18/24 11:16 Nitroglycerin (Ntrostat Sublingual) 0.4 mg Q5MINP PRN SL FOR CHEST PAIN 11/18/24 06:00 Morphine Sulfate 2 mg Q30M PRN IV FOR CHEST PAIN 11/18/24 06:00 Atorvastatin Calcium (Lipitor) 40 mg HS PO 11/18/24 22:00 Aspirin 81 mg DAILY PO 11/18/24 10:00 11/18/24 11:15 Review of Systems Constitutional: No symptom reported Ears, Nose, & Throat: No symptom reported Eyes: No symptom reported Neurological: No symptoms reported Pulmonary/Respiratory: No symptoms reported Cardiovascular: Chest pain Gastrointestinal: No symptom reported Genitourinary: No symptom reported Musculoskeletal: No symptom reported Skin: No symptom reported Psychiatric: No symptom reported Endocrine: No symptom reported Hematologic/Lymphatic: No symptom reported Vital Signs Vital Signs Date Time Temp Pulse Resp B/P (MAP) Pulse Ox O2 Delivery O2 Flow Rate FiO2 11/18/24 17:14 98.4 52 18 117/65 (82) 95 98.4 11/18/24 08:37 Room Air* 0 21 21 Physical Exam GENERAL: Alert and oriented x 3. No acute distress. Obese. EYES: PERRL, EOMI. Anicteric. HENT: Moist mucous membranes. LUNGS: Clear to auscultation bilaterally. CARDIOVASCULAR: Regular rate and rhythm. ABDOMEN: Soft, nontender and nondistended. EXTREMITIES: No edema. NEUROLOGIC: No focal neurological deficits. SKIN: Warm, dry. Labs/Diagnostic Data Labs Test 11/18/24 11:31 11/18/24 08:01 11/18/24 07:19 11/18/24 05:15 Range/Units Urine Color Light-yellow Yellow Urine Clarity Clear Clear Urine pH 5.5 5.0-9.0 Urine Specific [place] 1.029 1.001-1.035 Urine Protein Negative Negative Urine Ketones Negative Negative Urine Blood Negative Negative /uL Urine Nitrite Negative Negative Urine Bilirubin Negative Negative Urine Urobilinogen Normal Negative mg/dL Urine Leukocyte Esterase Negative Negative /uL Urine RBC 1 0 - 3 /hpf Urine Microscopic WBC < 1 0-3 /HPF Urine Squamous Epithelial Cells Few <5 /hpf Urine Bacteria None seen None Seen /hpf Urine Glucose 4+ H Normal mg/dL Urine Opiates Screen Neg NEGATIVE Urine Fentanyl Screen Neg NEGATIVE Urine Barbiturates Screen Neg NEGATIVE Urine Phencyclidine Screen Neg NEGATIVE Urine Amphetamines Screen Neg NEGATIVE Urine Benzodiazepines Screen Neg NEGATIVE Urine Cocaine Screen Neg NEGATIVE Urine Cannabinoids Screen Neg NEGATIVE Troponin I High Sensitivity 10 </=54 ng/L Lactic Acid Level 1.6 0.4-2.0 mmol/L White Blood Count 6.0 4.4-10.8 10^3/uL Red Blood Count 5.05 4.5-5.90 10^6/uL Hemoglobin 15.5 13.5-17.5 g/dL Hematocrit 45.2 41.0-53.0 % Mean Corpuscular Volume 89.3 80.0-100.0 fL Mean Corpuscular Hemoglobin 30.6 28.0-32.0 pg Mean Corpuscular Hemoglobin Concent 34.2 32.0-36.0 g/dL Red Cell Distribution Width 14.0 11.8-14.3 % Platelet Count 227 140-450 10^3/uL Mean Platelet Volume 7.1 6.9-10.8 fL Neutrophils (%) (Auto) 57.5 37.0-80.0 % Lymphocytes (%) (Auto) 30.2 10.0-50.0 % Monocytes (%) (Auto) 11.5 0.0-12.0 % Eosinophils (%) (Auto) 0.4 0.0-7.0 % Basophils (%) (Auto) 0.4 0.0-2.0 % Neutrophils # (Auto) 3.4 1.6-8.6 10 ^3/uL Lymphocytes # (Auto) 1.8 0.4-5.4 10 ^3/uL Monocytes # (Auto) 0.7 0-1.3 10 ^3/uL Eosinophils # (Auto) 0 0-0.8 10 ^3/uL Basophils # (Auto) 0 0-0.2 10 ^3/uL Nucleated Red Blood Cells 0.1 % Prothrombin Time 10.9 9.3-11.8 sec Prothrombin Time INR 1.03 0.9-1.15 Activated Partial Thromboplast Time 27.0 24.5-34.5 SEC Sodium Level 140 136-145 mmol/L Potassium Level 4.0 3.5-5.1 mmol/L Chloride Level 107 98-107 mmol/L Carbon Dioxide Level 25 20-31 mmol/L Anion Gap 8 5-15 Blood Urea Nitrogen 10 9-23 mg/dL Creatinine 0.88 0.700-1.30 mg/dL Glomerular Filtration Rate Calc 100 >90 mL/min BUN/Creatinine Ratio 11.4 10.0-20.0 Serum Glucose 99 74-106 mg/dL Hemoglobin A1c 6.6 H <5.7 % A1C Calcium Level 9.3 8.7-10.4 mg/dL Phosphorus Level 3.2 2.4-5.1 mg/dL Magnesium Level 2.0 1.6-2.6 mg/dL Total Bilirubin 0.4 0.2-1.0 mg/dL Aspartate Amino Transferase (AST) 18 13-40 U/L Alanine Aminotransferase (ALT) 26 7-40 U/L Alkaline Phosphatase 134 H 46-116 U/L B-Type Natriuretic Peptide 19.02 0-100 pg/mL Total Protein 6.6 5.7-8.2 g/dL Albumin 4.2 3.2-4.8 g/dL Triglycerides Level 374 H < 150 mg/dL Cholesterol Level 104 < 200 mg/dL LDL Cholesterol 51 < 100 mg/dL HDL Cholesterol 24 L 40-59 mg/dL Vitamin B12 Level 240 211-911 pg/mL Vitamin D 25-Hydroxy 41.2 30.0-100 ng/mL Thyroid Stimulating Hormone (TSH) 2.19 0.55-4.78 uIU/mL Assessment Chest pain. Coronary artery disease status post PTCA x2 BELLA (on Plavix and aspirin). History myocardial infarction. Hypertension. Dyslipidemia. Type 2 diabetes mellitus. Morbid obesity. Plan/Recommendation I agree with your ongoing assessment and care of plan. Patient has been seen by Anahi Celeste NP on my behalf, her and I discussed the plan with the patient. Transthoracic echocardiogram to evaluate cardiac function and wall motion. Chest pain protocol. HEART score: 4 points. Continue dual antiplatelet therapy. Lipid-lowering agent. Close Cardiac surveillance. Additional plan as per the hospital course. Plan discussed with: Patient NYHA Physical activity limitations: NA Date of Service: Nov 18, 2024 Billing Provider: MARKO NOEL MD Cardiology Common Codes: [id number] HOSP CARE(High Cardiology Consultation Codes: [id number] CONSULT <45MIN MARKO NOEL MD Nov 18, 2024 18:45
[2024-11-18] MEDS: ATORVASTATIN 20 MG TAB PO SCH (22:13)
[2024-11-18] MEDS: MORPHINE SULFATE INJ 2 MG/ml SYRG IV PRN (22:14)
[2024-11-19 01:00] VITALS: BP 130/81; PULSE 63; RESP 16; TEMP 98.1; O2SAT 93
[2024-11-19 05:00] VITALS: BP 108/64; PULSE 66; RESP 18; TEMP 97.7; O2SAT 93
[2024-11-19 08:00] VITALS: PULSE 57; PULSE 60; RESP 16; O2SAT 93
[2024-11-19 09:00] VITALS: BP 112/69; PULSE 60; RESP 16; TEMP 97.1; O2SAT 93
[2024-11-19] MEDS: CLOPIDOGREL BISULFATE 75 MG TAB PO SCH (10:01)
[2024-11-19] MEDS: ISOSORBIDE MONONITRATE 20 MG TAB PO SCH (10:01)
--- NOTE | 2024-11-19 12:45 | DVHPN2 ---
Objective Vitals Vital Signs Date Time Temp Pulse Resp B/P (MAP) Pulse Ox O2 Delivery O2 Flow Rate FiO2 11/19/24 10:03 60 16 110/69 11/19/24 09:00 97.1 93 97.1 11/19/24 08:00 Room Air* 0 21 Intake/Output Intake and Output 11/19/24 07:00 Intake Total 600 ml Balance 600 ml Intake Oral 600 ml # Voids 1 # Bowel Movements 1 Medications Current Medications Medications Dose Ordered Sig/Coretta Route Start Time Stop Time Status Last Admin Dose Admin Acetaminophen 650 mg Q6HP PRN PO 11/18/24 06:00 Ondansetron HCl 4 mg Q4HP PRN IV 11/18/24 06:00 11/18/24 06:33 4 MG Morphine Sulfate 2 mg Q4HPRN PRN IV 11/18/24 06:00 11/19/24 10:03 2 MG Enoxaparin Sodium 40 mg DAILY SC 11/18/24 10:00 11/19/24 10:02 40 MG Nitroglycerin 0.4 mg Q5MINP PRN SL 11/18/24 06:00 Morphine Sulfate 2 mg Q30M PRN IV 11/18/24 06:00 Atorvastatin Calcium 40 mg HS PO 11/18/24 22:00 11/18/24 22:13 40 MG Aspirin 81 mg DAILY PO 11/18/24 10:00 11/19/24 10:02 81 MG Isosorbide Mononitrate 20 mg BID PO 11/19/24 10:00 11/19/24 10:01 20 MG Clopidogrel Bisulfate 75 mg DAILY PO 11/19/24 10:00 11/19/24 10:01 75 MG Laboratory Results Laboratory Tests 11/18/24 05:15 Urinalysis Test 11/18/24 11:31 Urine Color Light-yellow (Yellow) Urine Clarity Clear (Clear) Urine pH 5.5 (5.0-9.0) Urine Specific [place] 1.029 (1.001-1.035) Urine Protein Negative (Negative) Urine Ketones Negative (Negative) Urine Blood Negative /uL (Negative) Urine Nitrite Negative (Negative) Urine Bilirubin Negative (Negative) Urine Urobilinogen Normal mg/dL (Negative) Urine Leukocyte Esterase Negative /uL (Negative) Urine RBC 1 /hpf (0 - 3) Urine Microscopic WBC < 1 /HPF (0-3) Urine Squamous Epithelial Cells Few /hpf (<5) Urine Bacteria None seen /hpf (None Seen) Urine Glucose 4+ mg/dL (Normal) H CHERYL CAT MD Nov 19, 2024 12:45
--- NOTE | 2024-11-19 14:32 | DVHDS2 ---
Discharge Summary Date of Admission Nov 18, 2024 at 05:51 Date of Discharge: Nov 19, 2024 Admitting Diagnosis Chest pain likely due to unstable angina History of Coronary artery disease with multiple PTCA Diabetes mellitus type 2 HGB A1c 6.6% on 11/18/2024 Hypertension Dyslipidemia Morbid obesity BMI 34.7 History of CVA Sinus bradycardia Labs/Diagnostic Data: Laboratory Results Test 11/18/24 11:31 11/18/24 08:01 11/18/24 07:19 11/18/24 05:15 Urine Color Light-yellow (Yellow) Urine Clarity Clear (Clear) Urine pH 5.5 (5.0-9.0) Urine Specific [place] 1.029 (1.001-1.035) Urine Protein Negative (Negative) Urine Ketones Negative (Negative) Urine Blood Negative /uL (Negative) Urine Nitrite Negative (Negative) Urine Bilirubin Negative (Negative) Urine Urobilinogen Normal mg/dL (Negative) Urine Leukocyte Esterase Negative /uL (Negative) Urine RBC 1 /hpf (0 - 3) Urine Microscopic WBC < 1 /HPF (0-3) Urine Squamous Epithelial Cells Few /hpf (<5) Urine Bacteria None seen /hpf (None Seen) Urine Glucose 4+ mg/dL (Normal) Urine Opiates Screen Neg (NEGATIVE) Urine Fentanyl Screen Neg (NEGATIVE) Urine Barbiturates Screen Neg (NEGATIVE) Urine Phencyclidine Screen Neg (NEGATIVE) Urine Amphetamines Screen Neg (NEGATIVE) Urine Benzodiazepines Screen Neg (NEGATIVE) Urine Cocaine Screen Neg (NEGATIVE) Urine Cannabinoids Screen Neg (NEGATIVE) Troponin I High Sensitivity 10 ng/L (</=54) Lactic Acid Level 1.6 mmol/L (0.4-2.0) White Blood Count 6.0 10^3/uL (4.4-10.8) Red Blood Count 5.05 10^6/uL (4.5-5.90) Hemoglobin 15.5 g/dL (13.5-17.5) Hematocrit 45.2 % (41.0-53.0) Mean Corpuscular Volume 89.3 fL (80.0-100.0) Mean Corpuscular Hemoglobin 30.6 pg (28.0-32.0) Mean Corpuscular Hemoglobin Concent 34.2 g/dL (32.0-36.0) Red Cell Distribution Width 14.0 % (11.8-14.3) Platelet Count 227 10^3/uL (140-450) Mean Platelet Volume 7.1 fL (6.9-10.8) Neutrophils (%) (Auto) 57.5 % (37.0-80.0) Lymphocytes (%) (Auto) 30.2 % (10.0-50.0) Monocytes (%) (Auto) 11.5 % (0.0-12.0) Eosinophils (%) (Auto) 0.4 % (0.0-7.0) Basophils (%) (Auto) 0.4 % (0.0-2.0) Neutrophils # (Auto) 3.4 10 ^3/uL (1.6-8.6) Lymphocytes # (Auto) 1.8 10 ^3/uL (0.4-5.4) Monocytes # (Auto) 0.7 10 ^3/uL (0-1.3) Eosinophils # (Auto) 0 10 ^3/uL (0-0.8) Basophils # (Auto) 0 10 ^3/uL (0-0.2) Nucleated Red Blood Cells 0.1 % Prothrombin Time 10.9 sec (9.3-11.8) Prothrombin Time INR 1.03 (0.9-1.15) Activated Partial Thromboplast Time 27.0 SEC (24.5-34.5) Sodium Level 140 mmol/L (136-145) Potassium Level 4.0 mmol/L (3.5-5.1) Chloride Level 107 mmol/L (98-107) Carbon Dioxide Level 25 mmol/L (20-31) Anion Gap 8 (5-15) Blood Urea Nitrogen 10 mg/dL (9-23) Creatinine 0.88 mg/dL (0.700-1.30) Glomerular Filtration Rate Calc 100 mL/min (>90) BUN/Creatinine Ratio 11.4 (10.0-20.0) Serum Glucose 99 mg/dL (74-106) Hemoglobin A1c 6.6 % A1C (<5.7) Calcium Level 9.3 mg/dL (8.7-10.4) Phosphorus Level 3.2 mg/dL (2.4-5.1) Magnesium Level 2.0 mg/dL (1.6-2.6) Total Bilirubin 0.4 mg/dL (0.2-1.0) Aspartate Amino Transferase (AST) 18 U/L (13-40) Alanine Aminotransferase (ALT) 26 U/L (7-40) Alkaline Phosphatase 134 U/L (46-116) B-Type Natriuretic Peptide 19.02 pg/mL (0-100) Total Protein 6.6 g/dL (5.7-8.2) Albumin 4.2 g/dL (3.2-4.8) Triglycerides Level 374 mg/dL (< 150) Cholesterol Level 104 mg/dL (< 200) LDL Cholesterol 51 mg/dL (< 100) HDL Cholesterol 24 mg/dL (40-59) Vitamin B12 Level 240 pg/mL (211-911) Vitamin D 25-Hydroxy 41.2 ng/mL (30.0-100) Thyroid Stimulating Hormone (TSH) 2.19 uIU/mL (0.55-4.78) Other Laboratory Tests 11/18/24 05:15 Brief Hx & Hospital Course: This is a 59 years old male come in because of left-sided chest pain. Patient said the pain is 8/10 and relieved by nitro. He came to emergency department. Workup was done. Troponin level three set is negative. EKG showed no change. Patient had a long cardiac history with PCI and stent placement. Last angiogram is in 2023 at [place] showed non revascularization of his artery. The patient echo was normal. EF of 65%. Hide Puller, Dr. Rebolledo see the patient and recommend no further workup. Follow up with Dr. Rebolledo as outpatient. Activity as tolerated. Diet per home diet. Recommend low-salt low-cholesterol diet follow up with primary care physician 1-2 weeks. Physical exam : HEENT: Normocephalic atraumatic pupils equal react to light and accommodation. Extraocular muscles intact, conjunctiva pink, oropharynx moist, no thrush, no exudate. Lymphatic: No lymphadenopathy Cardiovascular exam: S1, S2 was heard. No murmurs, rubs, gallops Lung: Clear on auscultation bilaterally, no wheeze, rale, rhonchi. GI: Abdominal soft, nondistended, nontenderness, positive bowel sounds. Extremity: No crepitus, cyanosis, edema. Pedal pulses present bilateral. Full range of motion. Skin: Normal turgor, no rash. Psych: Alert, oriented x3. Neurology: No focal deficits, cranial nerve II to XII grossly intact. This medical document was created using an electronic medical record system with [employer] direct computerized dictation system. Although this document has been carefully reviewed, there may still be some phonetic and typographical errors. These areas are purely typographical due to imperfections of the software programs, and do not reflect any compromise in the patient's medical care. Condition at Discharge: Stable Final Diagnosis/Problems List Chest pain likely due to unstable angina History of Coronary artery disease with multiple PTCA Diabetes mellitus type 2 HGB A1c 6.6% on 11/18/2024 Hypertension Dyslipidemia Morbid obesity BMI 34.7 History of CVA Sinus bradycardia Discharge Disposition: Home Discharge Instruct/Medications Diet: Cardiac 2g Na,low cholest Activity: No Restrictions, As Tolerated Follow Up/Referral: PCP 1-2 WEEKS CARDOLOGIST PER SCHEDULE Medications: RESUME HOME MEDS Discharge Statement: "Patient was advised to return to the ER or call 911 if any headaches, dizziness, shortness of breath, chest pain, abdominal pain, bleeding, fevers, or worsening of medical condition. Patient was counseled about treatment plan, medications, possible side effects, patientverbalized understanding. All questions were answered to the best of my ability. This discharge took greater then 30 minutes in planning, reviewing documentation, counseling the patient, and discussing with other team members." ASSESSMENT ASSESSMENT Assessment CHEST PAIN Date of Service: Nov 19, 2024 Billing Provider: CHERYL CAT MD Common Visit Codes: 14188-AWO/OBS DISCH DAY >30min CHERYL CAT MD Nov 19, 2024 14:32
[2024-11-19 15:18] VITALS: BP 102/58; PULSE 63; RESP 17; TEMP 98.1; O2SAT 90
--- NOTE | 2024-11-19 19:38 | DVHPN2 ---
Progress Note - Dictate Date Seen: Nov 19, 2024 Medical Necessity Reason Pt with a Central, PICC or Fol: No Subjective Patient was seen and evaluated in follow up. Patient has no new complaints at this time. Patient denies any cardiac symptoms. Patient is cardiac stable for discharge. Telemetry reviewed. vital signs Vital Sign Date Time Temp Pulse Resp B/P (MAP) Pulse Ox O2 Delivery O2 Flow Rate FiO2 11/19/24 15:18 98.1 63 17 90 11/19/24 10:33 110/62 11/19/24 08:00 Room Air* 0 21 Total Intake and Output 11/18/24 11/18/24 11/19/24 15:00 23:00 07:00 Intake Total 0 ml 600 ml Balance 0 ml 600 ml objective GENERAL: Alert and oriented x 3. No acute distress. Obese. EYES: PERRL, EOMI. Anicteric. HENT: Moist mucous membranes. LUNGS: Clear to auscultation bilaterally. CARDIOVASCULAR: Regular rate and rhythm. ABDOMEN: Soft, nontender and nondistended. EXTREMITIES: No edema. NEUROLOGIC: No focal neurological deficits. SKIN: Warm, dry. laboratory and microbiology Laboratory Tests 11/18/24 05:15 Test 11/18/24 05:15 Range/Units Serum Glucose 99 74-106 mg/dL Problem List Chest pain. Coronary artery disease status post PTCA x2 BELLA (on Plavix and aspirin). History myocardial infarction. Hypertension. Dyslipidemia. Type 2 diabetes mellitus. Morbid obesity. Assessment/Plan Continued all current supportive medical care. Aspirin, Lipitor, Plavix. DVT prophylactics. Nitro SL. Morphine for pain management. Additional plan as per the hospital course. Plan discussed with: Patient MARKO NOEL MD Nov 19, 2024 16:23
== END 2024-11-19 16:00 | disposition home or self-care (01) | DRG 198 ==
LOC: ER 04:25 → EDBD 04:25 → OVERFLOW 05:51 → EDUNIT# 05:51 → TELE-WESTW 15:47
PROVIDERS: ADMIT Student in an Organized Health Care Education/Training Program; ATTEND Emergency Medicine
DX: I25.110 Atherosclerotic heart disease of native coronary artery with unstable angina pectoris (principal); E11.9 Type 2 diabetes mellitus without complications; E66.01 Morbid (severe) obesity due to excess calories; E78.5 Hyperlipidemia, unspecified; I10 Essential (primary) hypertension; R00.1 Bradycardia, unspecified; Z83.3 Family history of diabetes mellitus; Z86.73 Personal history of transient ischemic attack (TIA), and cerebral infarction without residual deficits; I25.2 Old myocardial infarction; Z79.82 Long term (current) use of aspirin; Z79.891 Long term (current) use of opiate analgesic; Z79.1 Long term (current) use of non-steroidal anti-inflammatories (NSAID); Z79.899 Other long term (current) drug therapy; Z79.4 Long term (current) use of insulin; Z68.34 Body mass index [BMI] 34.0-34.9, adult; Z95.5 Presence of coronary angioplasty implant and graft
CPT/HCPCS: 36415; 71045; 80053; 80061; 80307; 81001; 82306; 82607; 83036; 83605; 83735; 83880; 84100; 84443; 84484; 85025; 85610; 85730; 93005; 93306; 99291; G0378; J2405